=== PATIENT | female | born 1935 | race Two or more races ===

== ENCOUNTER 2017-04-08 16:07 | Inpatient (IN) | payer MEDICARE ==
[~2017-04-08] VITALS: Ht 160 cm; Wt 61.4 kg
[2017-04-08] MEDS ORDERED: cloNIDine HCL 0.1 MG TAB ONE (16:59)
[2017-04-08] MEDS ORDERED: cloNIDine HCL 0.1 MG TAB PO ONE (17:15)
[2017-04-08 17:35] LABS: Basophils # (auto) 0 uL; Basophils % (auto) 0.4 % (0.0-2.0); Eosinophils # (auto) 0.5 uL; Eosinophils % (auto) 8.4 % (0.0-7.0); Hematocrit 33.8 % (36.0-46.0); Hemoglobin 11.3 g/dL (12.2-16.2); Lymphocytes # (auto) 1.1 uL; Lymphocytes % (auto) 16.7 % (10.0-50.0); Mean Corpuscular Hemoglobin 30.5 pg (28.0-32.0); Mean Corpuscular Hgb Conc. 33.5 g/dL (32.0-36.0); Mean Corpuscular Volume 91.1 fL (80.0-100.0); Mean Platelet Volume 7.8 fL (6.9-10.8); Monocytes # (auto) 0.4 uL; Monocytes % (auto) 7.1 % (0.0-12.0); Neutrophils # (auto) 4.3 uL; Neutrophils % (auto) 67.4 % (37.0-80.0); Platelet Count (auto) 203 10^3/uL (140-450); Red Cell Distribution Width 16.1 % (11.8-14.3); White Blood Cell 6.3 10^3/uL (4.4-10.8)
[2017-04-08 17:51] LABS: Albumin 3.1 g/dL (3.4-5.0); BUN/Creatinine Ratio 14.9; Bilirubin, Total 0.7 mg/dL (0.2-1.0); Calcium 8.3 mg/dL (8.5-10.1); Potassium 3.1 mmol/L (3.5-5.1); Total Protein 6.9 g/dL (6.4-8.2)
[2017-04-08] MEDS ORDERED: IPRATROPIUM BROM 0.5 MG/2.5ML INH SOL NEB ONE (19:30)
[2017-04-08] MEDS ORDERED: ALBUTEROL SULF 2.5 MG/0.5ML(0.5%) NEB SOLN NEB ONE (19:30)
[2017-04-08] MEDS ORDERED: methylPREDNISolone SOD SUCC 125 MG/2 ML VL IV ONE (20:00)
[2017-04-08 20:49] LABS: B-Type Natriuretic Peptide 361.54 pg/mL (0-100)
[2017-04-08 21:11] LABS: Temperature: 21.4 C (20.0-25.0)
[2017-04-08] MEDS ORDERED: POTASSIUM CHL 20 Meq TABLET PO ONE (23:30)
[2017-04-08] MEDS ORDERED: FUROSEMIDE 20 MG/2 ML VIAL IV ONE (23:30)
[2017-04-08] MEDS ORDERED: cefTRIAXone 1GM/50ML D5W 50 ML IV ONE (23:30)
[2017-04-09] MEDS ORDERED: IOHEXOL 350 MG/ML 100ML IJ ONE (00:58)
[2017-04-09] MEDS ORDERED: ACETAMINOPHEN 325 MG TAB PO PRN (01:00)
[2017-04-09] MEDS ORDERED: TEMAZEPAM 15 MG CAP PO PRN (01:00)
[2017-04-09] MEDS ORDERED: MORPHINE SULF INJ 2 MG/ML SYRINGE 1ML IV PRN (01:00)
[2017-04-09] MEDS ORDERED: cloNIDine HCL 0.1 MG TAB PO PRN (01:00)
[2017-04-09] MEDS ORDERED: hydrALAZINE HCL 25 MG TAB PO ONE (01:00)
[2017-04-09] MEDS ORDERED: HYDROcodone-ACET 5/325MG TAB PO PRN (01:00)
[2017-04-09] MEDS ORDERED: IPRATROPIUM BROM 0.5 MG/2.5ML INH SOL NEB PRN (01:00)
[2017-04-09] MEDS ORDERED: DOCUSATE SOD 100 MG CAP PO PRN (01:00)
[2017-04-09] MEDS ORDERED: ONDANSETRON HCL 4 MG/2 ML VIAL IV PRN (01:00)
[2017-04-09] MEDS ORDERED: ALBUTEROL SULF 2.5 MG/0.5ML(0.5%) NEB SOLN NEB PRN (01:00)
[2017-04-09] MEDS ORDERED: NITROGLYCERIN 0.4 MG SL TAB SL PRN (01:00)
[2017-04-09 04:35] VITALS: BP 153/74
[2017-04-09 04:37] LABS: INR 1.85 (0.9-1.15); Partial Thromboplastin Time 34.7 sec (22.64-33.71); Prothrombin Time 20.3 sec (9.37-12.3)
[2017-04-09 08:00] VITALS: BP 161/80
[2017-04-09] MEDS: FAMOTIDINE 20 MG TAB PO SCH ×2 (09:49→21:32)
[2017-04-09] MEDS: amLODIPine BESYLATE 5 MG TAB PO SCH (09:49)
[2017-04-09] MEDS: hydrALAZINE HCL 25 MG TAB PO SCH ×2 (09:50→21:32)
[2017-04-09] MEDS ORDERED: ENOXAPARIN SOD 40 MG/0.4 ML SYRINGE SC SCH (10:00)
[2017-04-09 12:00] VITALS: BP 139/70
[2017-04-09] MEDS ORDERED: FUROSEMIDE 20 MG/2 ML VIAL IV ONE (12:00)
[2017-04-09] MEDS ORDERED: POTASSIUM CHL 20 Meq TABLET PO ONE (12:00)
[2017-04-09 15:25] LABS: Urine Bilirubin Negative (Negative); Urine Blood Negative /uL (Negative); Urine Color Yellow (Yellow); Urine Glucose Normal (Normal); Urine Ketone Negative (Negative); Urine Nitrite Negative (Negative); Urine RBC 1 /hpf (0 - 4); Urine Squamous Epithelial Cell FEW /hpf (<5); Urine Urobilinogen Normal (Negative); Urine pH 5.5 (5.0-8.0)
[2017-04-09] MEDS ORDERED: WARF2TAB55 PO (16:06)
[2017-04-09] MEDS ORDERED: WARF2.5T PO (16:06)
[2017-04-09] MEDS ORDERED: DIPH25CA46 PO (16:06)
[2017-04-09] MEDS ORDERED: [UNRECOGNIZED DRUG - CODE] PO (16:06)
[2017-04-09] MEDS ORDERED: METO-159 PO (16:06)
[2017-04-09] MEDS ORDERED: CEPH500C PO (16:06)
[2017-04-09] MEDS ORDERED: CLON0.1T PO (16:06)
[2017-04-09] MEDS ORDERED: IPRIH INH (16:06)
[2017-04-09 16:59] VITALS: BP 140/85
[2017-04-09] MEDS ORDERED: WARFARIN SODIUM 2.5 MG TAB PO ONE (17:00)
[2017-04-09 19:39] VITALS: BP 140/85
[2017-04-09] MEDS ORDERED: cefTRIAXone 1GM/50ML D5W 50 ML IV SCH (21:00)
[2017-04-09 21:50] VITALS: BP 141/77
[2017-04-10 04:56] VITALS: BP 141/80
[2017-04-10 06:27] LABS: INR 2.23 (0.9-1.15); Partial Thromboplastin Time 33.1 sec (22.64-33.71); Prothrombin Time 24.5 sec (9.37-12.3)
[2017-04-10 06:46] LABS: BUN/Creatinine Ratio 21.7; Calcium 8.5 mg/dL (8.5-10.1); Potassium 3.6 mmol/L (3.5-5.1)
[2017-04-10 09:26] VITALS: BP 163/77
[2017-04-10] MEDS ORDERED: predniSONE 20 MG TAB PO ONE (09:45)
[2017-04-10] MEDS: amLODIPine BESYLATE 5 MG TAB PO SCH (10:36)
[2017-04-10] MEDS: FAMOTIDINE 20 MG TAB PO SCH (10:36)
[2017-04-10] MEDS: hydrALAZINE HCL 25 MG TAB PO SCH (10:37)
[2017-04-10] MEDS ORDERED: WARFARIN SODIUM 2.5 MG TAB PO ONE (17:00)
== END 2017-04-10 11:15 | disposition home or self-care (01) | DRG 291 ==
LOC: ER 16:13 → TELE 16:14 → TELE-CENTR 04-09 04:35 → CENTRAL 04-09 12:00
PROVIDERS: ADMIT Internal Medicine; ATTEND Internal Medicine
DX: I11.0 Hypertensive heart disease with heart failure (principal); J96.20 Acute and chronic respiratory failure, unspecified whether with hypoxia or hypercapnia; D68.69 Other thrombophilia; J44.1 Chronic obstructive pulmonary disease with (acute) exacerbation; I50.9 Heart failure, unspecified; I48.91 Unspecified atrial fibrillation; E87.6 Hypokalemia; R00.1 Bradycardia, unspecified; J06.9 Acute upper respiratory infection, unspecified; I69.320 Aphasia following cerebral infarction; Z83.3 Family history of diabetes mellitus; Z90.49 Acquired absence of other specified parts of digestive tract; Z90.710 Acquired absence of both cervix and uterus
CPT/HCPCS: 36415; 71020; 71275; 80048; 80053; 81001; 83880; 84484; 85025; 85379; 85610; 85730; 94640; 96365; 96375; J0696

== ENCOUNTER 2017-04-25 02:52 | Emergency (ER) | payer MEDICARE ==
[~2017-04-25] VITALS: Ht 165.1 cm; Wt 63.5 kg
[~2017-04-25 02:52] MED LIST: CEPH500C PO; CLON0.1T PO; DIPH25CA46 PO; IPRIH INH; METO-159 PO; WARF2.5T PO; WARF2TAB55 PO; [UNRECOGNIZED DRUG - CODE] PO
[2017-04-25] MEDS ORDERED: ALBUTEROL SULF 2.5 MG/0.5ML(0.5%) NEB SOLN HHN STA (03:08)
[2017-04-25] MEDS ORDERED: cloNIDine HCL 0.1 MG TAB PO ONE (03:15)
[2017-04-25] MEDS ORDERED: IPRATROPIUM BROM 0.5 MG/2.5ML INH SOL NEB ONE (03:15)
[2017-04-25 03:23] LABS: Basophils # (auto) 0 uL; Basophils % (auto) 0.3 % (0.0-2.0); Eosinophils # (auto) 0.4 uL; Eosinophils % (auto) 4.5 % (0.0-7.0); Hematocrit 35.3 % (36.0-46.0); Hemoglobin 11.8 g/dL (12.2-16.2); Lymphocytes # (auto) 0.9 uL; Lymphocytes % (auto) 10.5 % (10.0-50.0); Mean Corpuscular Hemoglobin 30.3 pg (28.0-32.0); Mean Corpuscular Hgb Conc. 33.4 g/dL (32.0-36.0); Mean Corpuscular Volume 90.8 fL (80.0-100.0); Monocytes # (auto) 0.8 uL; Neutrophils # (auto) 6.6 uL; Neutrophils % (auto) 75.7 % (37.0-80.0); Platelet Count (auto) 234 10^3/uL (140-450); Red Blood Cells 3.89 10^6/uL (4.0-5.20); Red Cell Distribution Width 16.1 % (11.8-14.3); White Blood Cell 8.7 10^3/uL (4.4-10.8)
[2017-04-25 03:44] LABS: INR 1.84 (0.9-1.15); Partial Thromboplastin Time 37.1 sec (22.64-33.71); Prothrombin Time 20.2 sec (9.37-12.3)
[2017-04-25 04:03] LABS: Albumin 3.1 g/dL (3.4-5.0); BUN/Creatinine Ratio 19.4; Calcium 8.6 mg/dL (8.5-10.1); Potassium 3.2 mmol/L (3.5-5.1)
[2017-04-25 04:08] LABS: Bilirubin, Total 0.8 mg/dL (0.2-1.0); Total Protein 6.9 g/dL (6.4-8.2)
[2017-04-25] MEDS ORDERED: DILTIAZEM HCL 25 MG/5 ML VIAL IV ONE ×2 (04:30→08:00)
[2017-04-25] MEDS ORDERED: POTASSIUM CHL 20 Meq TABLET PO ONE (04:45)
[2017-04-25 06:31] LABS: Urine Bacteria FEW /hpf (None Seen); Urine Blood Negative /uL (Negative); Urine Mucus FEW (None Seen); Urine Specific Gravity 1.005 (1.001-1.035); Urine WBC <1 /hpf (0 - 5)
[2017-04-25] MEDS ORDERED: POTASSIUM CHL 10% (20 MEQ/15ML) 15ml ORAL SOLN PO ONE (08:00)
[2017-04-25 09:44] VITALS: BP 182/67
== END 2017-04-25 09:57 | disposition home or self-care (01) ==
LOC: ER 03:02
DX: I10 Essential (primary) hypertension (principal); E87.6 Hypokalemia; E46 Unspecified protein-calorie malnutrition; J44.9 Chronic obstructive pulmonary disease, unspecified; Z86.73 Personal history of transient ischemic attack (TIA), and cerebral infarction without residual deficits; Z90.710 Acquired absence of both cervix and uterus; Z90.89 Acquired absence of other organs; Z79.899 Other long term (current) drug therapy
CPT/HCPCS: 36415; 70450; 71020; 80053; 81001; 84484; 85025; 85610; 85730; 93005; 94640; 96374; 99285; J7030

== ENCOUNTER 2017-11-30 03:47 | Inpatient (IN) | payer MEDICARE ==
[~2017-11-30] VITALS: Ht 157.5 cm; Wt 55.9 kg
[2017-11-30] MEDS ORDERED: IPRATROPIUM BROM 0.5 MG/2.5ML INH SOL NEB ONE (05:00)
[2017-11-30] MEDS ORDERED: ALBUTEROL SULF 2.5 MG/0.5ML(0.5%) NEB SOLN NEB ONE (05:00)
[2017-11-30] MEDS ORDERED: methylPREDNISolone SOD SUCC 125 MG/2 ML VL IV ONE (05:45)
[2017-11-30] MEDS ORDERED: cefTRIAXone 1GM/10ml IVPUSH 10 ML IV ONE ×2 (05:45→11:15)
[2017-11-30] MEDS ORDERED: MAGNESIUM SULFATE 1GM/100ML 100 ML IV ONE (05:52)
[2017-11-30] MEDS: MAGNESIUM SULFATE 1GM/100ML 100 ML IV SCH ×2 (06:06→06:45)
[2017-11-30 06:16] LABS: Hematocrit 36.6 % (36.0-46.0); Hemoglobin 12.2 g/dL (12.2-16.2); Mean Corpuscular Hemoglobin 30.9 pg (28.0-32.0); Mean Corpuscular Hgb Conc. 33.3 g/dL (32.0-36.0); Mean Corpuscular Volume 92.9 fL (80.0-100.0); Platelet Count (auto) 203 10^3/uL (140-450); Red Blood Cells 3.94 10^6/uL (4.0-5.20); Red Cell Distribution Width 14.2 % (11.8-14.3); White Blood Cell 5.5 10^3/uL (4.4-10.8)
[2017-11-30 06:18] LABS: Alanine Aminotransferase 11 U/L (13-56); Albumin 3.2 g/dL (3.4-5.0); Anion Gap 10 (5-15); Aspartate Aminotransferase 13 U/L (15-37); BUN/Creatinine Ratio 16.8; Blood Urea Nitrogen 22 mg/dL (7-18); Calcium 8.5 mg/dL (8.5-10.1); Carbon Dioxide 29 mmol/L (21-32); Chloride 104 mmol/L (98-107); GFR African American 50 mL/min; GFR Non-African American 41 mL/min; Glucose 98 mg/dL (74-106); Magnesium 2.2 mg/dL (1.6-2.6); Potassium 3.2 mmol/L (3.5-5.1); Sodium 143 mmol/L (136-145)
[2017-11-30 06:23] LABS: Alkaline Phosphatase 57 U/L (45-117); Bilirubin, Total 0.6 mg/dL (0.2-1.0); Total Protein 7.1 g/dL (6.4-8.2)
[2017-11-30 06:31] LABS: Band Neutrophils % (manual) 0; Basophils % (manual) 0 (0.0-2.0); Blast Cells 0; Metamyelocytes % 0; Myelocytes % 0; Promyelocytes % 0; Reactive Lymphocytes 0
[2017-11-30 06:59] LABS: Urine Bacteria NONE SEEN /hpf (None Seen); Urine Blood Negative /uL (Negative); Urine Specific Gravity 1.014 (1.001-1.035); Urine WBC 5 /hpf (0 - 5)
[2017-11-30 07:42] LABS: Eosinophils % (manual) 15 (0-7); Lymphocytes % (manual) 19 (10.0-50.0); Monocytes % (manual) 8 (0-12)
[2017-11-30] MEDS ORDERED: HYDROcodone-ACET 5/325MG TAB PO PRN (11:30)
[2017-11-30] MEDS ORDERED: FUROSEMIDE 20 MG TAB PO ONE (11:30)
[2017-11-30] MEDS ORDERED: TEMAZEPAM 15 MG CAP PO PRN (11:30)
[2017-11-30] MEDS ORDERED: POTASSIUM CHL 10 Meq TABLET PO ONE (11:30)
[2017-11-30] MEDS ORDERED: DILTIAZEM HCL 120MG ER CAP PO ONE (11:30)
[2017-11-30] MEDS ORDERED: ONDANSETRON HCL 4 MG/2 ML VIAL IV PRN (11:30)
[2017-11-30] MEDS ORDERED: DOCUSATE SOD 100 MG CAP PO PRN (11:30)
[2017-11-30] MEDS: FAMOTIDINE 20 MG TAB PO SCH (11:54)
[2017-11-30] MEDS: methylPREDNISolone SOD SUCC 40 MG/ML VL IV SCH ×3 (11:54→23:42)
[2017-11-30 12:06] LABS: INR 2.4 (0.9-1.15); Partial Thromboplastin Time 36.9 sec (23.78-33.04); Prothrombin Time 24.4 sec (9.27-12.13)
[2017-11-30] MEDS: IPRATROPIUM BROM 0.5 MG/2.5ML INH SOL NEB SCH ×2 (12:35→18:07)
[2017-11-30] MEDS: ALBUTEROL SULF 2.5 MG/0.5ML(0.5%) NEB SOLN NEB SCH ×2 (12:35→18:07)
[2017-11-30] MEDS: BOOST PLUS 8 ounce PO SCH ×2 (12:44→18:00)
[2017-11-30] MEDS: SODIUM CHLOR 0.9% PF (SALINE LOCK) 10ML VIAL/SYR IV SCH ×2 (12:44→22:03)
[2017-11-30 14:16] VITALS: BP 138/64
[2017-11-30 14:26] VITALS: BP 142/63
[2017-11-30] MEDS ORDERED: FURO20TA3 PO (14:41)
[2017-11-30] MEDS ORDERED: WARF2.5T39 PO (14:41)
[2017-11-30] MEDS ORDERED: ESCI10TA53 PO (14:41)
[2017-11-30] MEDS ORDERED: POTA10TA51 PO (14:41)
[2017-11-30] MEDS ORDERED: DILT60TA27 PO (14:41)
[2017-11-30] MEDS ORDERED: HYDR25TA35 PO (14:41)
[2017-11-30] MEDS ORDERED: IPRA0.03 INH (14:41)
[2017-11-30] MEDS ORDERED: ACET250T3 PO (14:41)
[2017-11-30] MEDS ORDERED: ALBU0.5N2 IN (14:41)
[2017-11-30] MEDS: hydrALAZINE HCL 25 MG TAB PO SCH ×2 (16:40→22:03)
[2017-11-30] MEDS ORDERED: WARFARIN SODIUM 2.5 MG TAB PO ONE (17:00)
[2017-11-30 17:25] VITALS: BP 122/85
[2017-11-30 21:53] VITALS: BP 136/71
[2017-11-30] MEDS ORDERED: FAMOTIDINE 20 MG TAB PO SCH (22:00)
[2017-11-30] MEDS: METOPROLOL TARTRATE 50 MG TAB PO SCH (22:04)
[2017-11-30] MEDS: ACETAMINOPHEN 325 MG TAB PO PRN (23:43)
[2017-12-01] MEDS: ALBUTEROL SULF 2.5 MG/0.5ML(0.5%) NEB SOLN NEB SCH ×4 (00:14→19:25)
[2017-12-01] MEDS: IPRATROPIUM BROM 0.5 MG/2.5ML INH SOL NEB SCH ×4 (00:14→19:25)
[2017-12-01 04:00] VITALS: BP 143/64
[2017-12-01] MEDS: SODIUM CHLOR 0.9% PF (SALINE LOCK) 10ML VIAL/SYR IV SCH ×3 (05:24→21:44)
[2017-12-01] MEDS: methylPREDNISolone SOD SUCC 40 MG/ML VL IV SCH ×3 (05:25→18:07)
[2017-12-01] MEDS: hydrALAZINE HCL 25 MG TAB PO SCH ×3 (05:25→21:44)
[2017-12-01 05:45] LABS: Basophils # (auto) 0 uL; Basophils % (auto) 0.1 % (0.0-2.0); Eosinophils # (auto) 0 uL; Hematocrit 36.5 % (36.0-46.0); Hemoglobin 12.2 g/dL (12.2-16.2); Lymphocytes # (auto) 0.5 uL; Lymphocytes % (auto) 7.8 % (10.0-50.0); Mean Corpuscular Hemoglobin 30.7 pg (28.0-32.0); Mean Corpuscular Hgb Conc. 33.5 g/dL (32.0-36.0); Mean Corpuscular Volume 91.8 fL (80.0-100.0); Monocytes # (auto) 0.1 uL; Monocytes % (auto) 1.5 % (0.0-12.0); Neutrophils # (auto) 5.9 uL; Neutrophils % (auto) 90.6 % (37.0-80.0); Platelet Count (auto) 205 10^3/uL (140-450); Red Blood Cells 3.97 10^6/uL (4.0-5.20); Red Cell Distribution Width 14.5 % (11.8-14.3); White Blood Cell 6.5 10^3/uL (4.4-10.8)
[2017-12-01 05:55] LABS: INR 3.12 (0.9-1.15); Partial Thromboplastin Time 36.4 sec (23.78-33.04); Prothrombin Time 31.3 sec (9.27-12.13)
[2017-12-01 05:56] LABS: Albumin 3.2 g/dL (3.4-5.0); Calcium 8.4 mg/dL (8.5-10.1); Potassium 3.4 mmol/L (3.5-5.1)
[2017-12-01 05:58] LABS: BUN/Creatinine Ratio 18.9
[2017-12-01 06:01] LABS: Bilirubin, Total 0.4 mg/dL (0.2-1.0); Total Protein 7.2 g/dL (6.4-8.2)
[2017-12-01] MEDS: BOOST PLUS 8 ounce PO SCH ×3 (08:00→18:51)
[2017-12-01 08:29] VITALS: BP 147/74
[2017-12-01] MEDS: FUROSEMIDE 20 MG TAB PO SCH (09:57)
[2017-12-01] MEDS: cefTRIAXone 1GM/10ml IVPUSH 10 ML IV SCH (09:57)
[2017-12-01] MEDS: POTASSIUM CHL 10 Meq TABLET PO SCH (09:58)
[2017-12-01] MEDS: CHOLECALCIFEROL (VITD3) 1,000 UNIT TAB PO SCH (09:58)
[2017-12-01] MEDS: MULTIPLE VITAMIN TAB PO SCH (09:58)
[2017-12-01] MEDS: DILTIAZEM HCL 120MG ER CAP PO SCH (09:58)
[2017-12-01] MEDS: FAMOTIDINE 20 MG TAB PO SCH (09:58)
[2017-12-01] MEDS: METOPROLOL TARTRATE 50 MG TAB PO SCH ×2 (09:59→21:44)
[2017-12-01 13:00] VITALS: BP 146/81
[2017-12-01] MEDS ORDERED: guaiFENesin-DM 100/10mg/5ml SYR PO PRN (13:30)
[2017-12-01] MEDS ORDERED: POTASSIUM CHLORIDE 8 MEQ TAB PO ONE (13:30)
[2017-12-01] MEDS: ACETAMINOPHEN 325 MG TAB PO PRN (16:05)
[2017-12-01] MEDS ORDERED: WARFARIN SODIUM 2.5 MG TAB PO ONE (17:00)
[2017-12-01 17:14] VITALS: BP 146/68
[2017-12-01 23:17] VITALS: BP 143/70
[2017-12-02] MEDS: methylPREDNISolone SOD SUCC 40 MG/ML VL IV SCH ×3 (00:07→11:59)
[2017-12-02] MEDS: ALBUTEROL SULF 2.5 MG/0.5ML(0.5%) NEB SOLN NEB SCH ×3 (00:33→13:46)
[2017-12-02] MEDS: IPRATROPIUM BROM 0.5 MG/2.5ML INH SOL NEB SCH ×3 (00:33→13:46)
[2017-12-02 05:30] VITALS: BP 152/75
[2017-12-02] MEDS: SODIUM CHLOR 0.9% PF (SALINE LOCK) 10ML VIAL/SYR IV SCH ×2 (05:58→13:45)
[2017-12-02] MEDS: hydrALAZINE HCL 25 MG TAB PO SCH ×2 (05:59→13:43)
[2017-12-02 06:41] LABS: Basophils # (auto) 0 uL; Basophils % (auto) 0.1 % (0.0-2.0); Eosinophils # (auto) 0 uL; Hematocrit 35.1 % (36.0-46.0); Hemoglobin 11.9 g/dL (12.2-16.2); Lymphocytes # (auto) 0.3 uL; Lymphocytes % (auto) 2.9 % (10.0-50.0); Mean Corpuscular Hemoglobin 30.9 pg (28.0-32.0); Mean Corpuscular Hgb Conc. 33.9 g/dL (32.0-36.0); Monocytes # (auto) 0.2 uL; Neutrophils # (auto) 10.3 uL; Platelet Count (auto) 208 10^3/uL (140-450); Red Blood Cells 3.86 10^6/uL (4.0-5.20); Red Cell Distribution Width 14.5 % (11.8-14.3); White Blood Cell 10.9 10^3/uL (4.4-10.8)
[2017-12-02 06:50] LABS: INR 3.23 (0.9-1.15); Partial Thromboplastin Time 35.7 sec (23.78-33.04); Prothrombin Time 32.3 sec (9.27-12.13)
[2017-12-02 06:51] LABS: BUN/Creatinine Ratio 32.1; Calcium 8.2 mg/dL (8.5-10.1); Potassium 3.5 mmol/L (3.5-5.1)
[2017-12-02] MEDS: BOOST PLUS 8 ounce PO SCH ×2 (08:58→13:15)
[2017-12-02] MEDS: cefTRIAXone 1GM/10ml IVPUSH 10 ML IV SCH (09:08)
[2017-12-02] MEDS: MULTIPLE VITAMIN TAB PO SCH (09:08)
[2017-12-02] MEDS: DILTIAZEM HCL 120MG ER CAP PO SCH (09:09)
[2017-12-02] MEDS: FAMOTIDINE 20 MG TAB PO SCH (09:09)
[2017-12-02] MEDS: FUROSEMIDE 20 MG TAB PO SCH (09:09)
[2017-12-02] MEDS: POTASSIUM CHL 10 Meq TABLET PO SCH (09:09)
[2017-12-02] MEDS: CHOLECALCIFEROL (VITD3) 1,000 UNIT TAB PO SCH (09:10)
[2017-12-02] MEDS: METOPROLOL TARTRATE 50 MG TAB PO SCH (09:10)
[2017-12-02 09:18] VITALS: BP 147/74
[2017-12-02 15:20] VITALS: BP 148/80
== END 2017-12-02 16:20 | disposition home or self-care (01) | DRG 189 ==
LOC: ER 03:49 → OVERFLOW 03:50 → EAST 14:42
PROVIDERS: ADMIT Internal Medicine; ATTEND Family Medicine
DX: J96.01 Acute respiratory failure with hypoxia (principal); J44.0 Chronic obstructive pulmonary disease with (acute) lower respiratory infection; J45.901 Unspecified asthma with (acute) exacerbation; I48.92 Unspecified atrial flutter; E44.0 Moderate protein-calorie malnutrition; J44.1 Chronic obstructive pulmonary disease with (acute) exacerbation; I13.0 Hypertensive heart and chronic kidney disease with heart failure and stage 1 through stage 4 chronic kidney disease, or unspecified chronic kidney disease; I69.351 Hemiplegia and hemiparesis following cerebral infarction affecting right dominant side; J20.9 Acute bronchitis, unspecified; N18.3 Chronic kidney disease, stage 3 (moderate); I48.0 Paroxysmal atrial fibrillation; I25.10 Atherosclerotic heart disease of native coronary artery without angina pectoris; E87.6 Hypokalemia; I50.9 Heart failure, unspecified; I25.2 Old myocardial infarction; I69.320 Aphasia following cerebral infarction; Z90.710 Acquired absence of both cervix and uterus; Z90.49 Acquired absence of other specified parts of digestive tract; Z90.89 Acquired absence of other organs; Z79.899 Other long term (current) drug therapy; Z95.0 Presence of cardiac pacemaker; Z68.22 Body mass index [BMI] 22.0-22.9, adult
CPT/HCPCS: 36415; 71045; 80048; 80053; 81001; 83735; 83880; 84484; 85007; 85025; 85027; 85610; 85730; 87070; 87205; 93005; 93306; 93886; 94640; 94761; 96365; 96375; 97163

== ENCOUNTER 2018-01-18 18:07 | Inpatient (IN) | payer MEDICARE ==
[~2018-01-18] VITALS: Ht 157.5 cm; Wt 55.8 kg
[~2018-01-18 18:07] MED LIST changes: +ACET250T3 PO; +ALBU0.5N2 IN; -CEPH500C PO; -CLON0.1T PO; +DILT60TA27 PO; -DIPH25CA46 PO; +ESCI10TA53 PO; +FURO20TA3 PO; +HYDR-4296 PO; +IPRA0.03 INH; -IPRIH INH; +POTA10TA51 PO; -WARF2.5T PO; +WARF2.5T39 PO; -WARF2TAB55 PO; -[UNRECOGNIZED DRUG - CODE] PO
[2018-01-18 18:38] LABS: Basophils # (auto) 0.1 uL; Basophils % (auto) 0.8 % (0.0-2.0); Eosinophils # (auto) 0.3 uL; Eosinophils % (auto) 3.6 % (0.0-7.0); Hematocrit 33.8 % (36.0-46.0); Hemoglobin 11.5 g/dL (12.2-16.2); Lymphocytes # (auto) 0.7 uL; Lymphocytes % (auto) 8.2 % (10.0-50.0); Mean Corpuscular Hemoglobin 30.7 pg (28.0-32.0); Mean Corpuscular Volume 90.4 fL (80.0-100.0); Monocytes # (auto) 0.5 uL; Monocytes % (auto) 6.5 % (0.0-12.0); Neutrophils # (auto) 6.7 uL; Neutrophils % (auto) 80.9 % (37.0-80.0); Platelet Count (auto) 298 10^3/uL (140-450); Red Blood Cells 3.74 10^6/uL (4.0-5.20); Red Cell Distribution Width 14.7 % (11.8-14.3); White Blood Cell 8.3 10^3/uL (4.4-10.8)
[2018-01-18 18:57] LABS: Alanine Aminotransferase 9 U/L (13-56); Albumin 2.7 g/dL (3.4-5.0); Anion Gap 7 (5-15); Aspartate Aminotransferase 6 U/L (15-37); BUN/Creatinine Ratio 16.1; Blood Urea Nitrogen 27 mg/dL (7-18); Calcium 7.9 mg/dL (8.5-10.1); Carbon Dioxide 28 mmol/L (21-32); Chloride 103 mmol/L (98-107); GFR African American 37 mL/min; GFR Non-African American 31 mL/min; Glucose 100 mg/dL (74-106); Potassium 3.6 mmol/L (3.5-5.1); Sodium 138 mmol/L (136-145)
[2018-01-18 19:01] LABS: Alkaline Phosphatase 85 U/L (45-117); Bilirubin, Total 0.5 mg/dL (0.2-1.0); Total Protein 6.9 g/dL (6.4-8.2)
[2018-01-18] MEDS ORDERED: ALBUTEROL SULF 2.5 MG/0.5ML(0.5%) NEB SOLN HHN ONE (19:30)
[2018-01-18] MEDS ORDERED: IPRATROPIUM BROM 0.5 MG/2.5ML INH SOL HHN ONE (19:30)
[2018-01-18] MEDS ORDERED: methylPREDNISolone SOD SUCC 125 MG/2 ML VL IV ONE (19:30)
[2018-01-18] MEDS ORDERED: cefTRIAXone 1GM/10ml IVPUSH 10 ML IV ONE (20:30)
[2018-01-18] MEDS ORDERED: TIOT17SP (20:56)
[2018-01-18] MEDS ORDERED: LISI-646 PO (20:56)
[2018-01-18] MEDS ORDERED: FUR20T PO (20:56)
[2018-01-18] MEDS ORDERED: ESCI10TA PO (20:57)
[2018-01-18 21:44] LABS: INR 3.57 (0.9-1.15); Prothrombin Time 35.5 sec (9.27-12.13)
[2018-01-18] MEDS ORDERED: ALBUTEROL SULF 2.5 MG/0.5ML(0.5%) NEB SOLN NEB PRN (21:45)
[2018-01-18] MEDS ORDERED: NITROGLYCERIN 0.4 MG SL TAB SL PRN (21:45)
[2018-01-18] MEDS ORDERED: MORPHINE SULFATE 4 MG/ML SYR/VIAL IV PRN (21:45)
[2018-01-18] MEDS ORDERED: HYDROcodone-ACET 5/325MG TAB PO PRN (21:45)
[2018-01-18] MEDS ORDERED: ACETAMINOPHEN 325 MG TAB PO PRN (21:45)
[2018-01-18] MEDS ORDERED: ONDANSETRON HCL 4 MG/2 ML VIAL IV PRN (21:45)
[2018-01-18] MEDS ORDERED: TEMAZEPAM 15 MG CAP PO PRN (21:45)
[2018-01-18] MEDS ORDERED: IPRATROPIUM BROM 0.5 MG/2.5ML INH SOL NEB PRN (21:45)
[2018-01-18] MEDS: hydrALAZINE HCL 25 MG TAB PO SCH (22:10)
[2018-01-18 22:47] VITALS: BP 138/74
[2018-01-18 23:06] LABS: Urine Bacteria FEW /hpf (None Seen); Urine Blood Negative /uL (Negative); Urine Mucus FEW (None Seen); Urine Specific Gravity 1.012 (1.001-1.035); Urine WBC 2 /hpf (0 - 5)
[2018-01-19 01:45] VITALS: BP 125/58
[2018-01-19 05:00] VITALS: BP 149/78
[2018-01-19] MEDS: hydrALAZINE HCL 25 MG TAB PO SCH ×2 (05:35→14:40)
[2018-01-19 06:44] LABS: Basophils # (auto) 0 uL; Basophils % (auto) 0.1 % (0.0-2.0); Eosinophils # (auto) 0 uL; Hematocrit 31.1 % (36.0-46.0); Hemoglobin 10.6 g/dL (12.2-16.2); Lymphocytes # (auto) 0.3 uL; Lymphocytes % (auto) 4.7 % (10.0-50.0); Mean Corpuscular Hemoglobin 30.8 pg (28.0-32.0); Mean Corpuscular Hgb Conc. 34.1 g/dL (32.0-36.0); Mean Corpuscular Volume 90.3 fL (80.0-100.0); Monocytes # (auto) 0 uL; Monocytes % (auto) 0.7 % (0.0-12.0); Neutrophils # (auto) 6.5 uL; Neutrophils % (auto) 94.5 % (37.0-80.0); Nucleated Red Blood Cells % 0.1 %; Platelet Count (auto) 274 10^3/uL (140-450); Red Blood Cells 3.45 10^6/uL (4.0-5.20); Red Cell Distribution Width 14.5 % (11.8-14.3); White Blood Cell 6.8 10^3/uL (4.4-10.8)
[2018-01-19 06:55] LABS: INR 3.63 (0.9-1.15); Partial Thromboplastin Time 50.6 sec (23.78-33.04); Prothrombin Time 36.1 sec (9.27-12.13)
[2018-01-19 07:03] LABS: Albumin 2.5 g/dL (3.4-5.0); BUN/Creatinine Ratio 18.9; Bilirubin, Total 0.3 mg/dL (0.2-1.0); Calcium 8.3 mg/dL (8.5-10.1); Potassium 3.9 mmol/L (3.5-5.1); Total Protein 6.8 g/dL (6.4-8.2)
[2018-01-19 09:00] VITALS: BP 146/70
[2018-01-19] MEDS ORDERED: cefTRIAXone 1GM/10ml IVPUSH 10 ML IV SCH (09:00)
[2018-01-19] MEDS ORDERED: FUROSEMIDE 20 MG TAB PO SCH (10:00)
[2018-01-19] MEDS ORDERED: DILTIAZEM HCL 120MG ER CAP PO SCH (10:00)
[2018-01-19] MEDS ORDERED: PANTOPRAZOLE 40 MG TAB PO SCH (10:00)
[2018-01-19] MEDS ORDERED: LISINOPRIL 20 MG TAB PO SCH (10:00)
[2018-01-19 12:00] VITALS: BP 151/69
== END 2018-01-19 16:30 | disposition home or self-care (01) | DRG 189 ==
LOC: ER 18:07 → TELE 18:08 → TELE-WESTW 23:35
PROVIDERS: ADMIT Nurse Practitioner; ATTEND Family Medicine
DX: J96.20 Acute and chronic respiratory failure, unspecified whether with hypoxia or hypercapnia (principal); I50.42 Chronic combined systolic (congestive) and diastolic (congestive) heart failure; J44.1 Chronic obstructive pulmonary disease with (acute) exacerbation; I13.0 Hypertensive heart and chronic kidney disease with heart failure and stage 1 through stage 4 chronic kidney disease, or unspecified chronic kidney disease; J44.0 Chronic obstructive pulmonary disease with (acute) lower respiratory infection; D63.8 Anemia in other chronic diseases classified elsewhere; I08.3 Combined rheumatic disorders of mitral, aortic and tricuspid valves; I25.10 Atherosclerotic heart disease of native coronary artery without angina pectoris; I25.2 Old myocardial infarction; I48.91 Unspecified atrial fibrillation; J20.9 Acute bronchitis, unspecified; N18.3 Chronic kidney disease, stage 3 (moderate); Z90.710 Acquired absence of both cervix and uterus; Z86.73 Personal history of transient ischemic attack (TIA), and cerebral infarction without residual deficits; Z80.59 Family history of malignant neoplasm of other urinary tract organ
CPT/HCPCS: 36415; 71045; 80053; 81001; 83605; 83735; 83880; 84484; 85025; 85610; 85730; 87040; 93005; 94640; 94761; 96374; 96375; 96376; J0696

== ENCOUNTER 2018-02-15 20:14 | Inpatient (IN) | payer MEDICARE ==
[~2018-02-15] VITALS: Ht 160 cm; Wt 57.0 kg
[~2018-02-15 20:14] MED LIST changes: -ACET250T3 PO; +ESCI10TA PO; -ESCI10TA53 PO; +LISI-646 PO; +TIOT17SP
[2018-02-15 21:19] LABS: Basophils # (auto) 0 uL; Basophils % (auto) 0.2 % (0.0-2.0); Eosinophils # (auto) 0.1 uL; Hematocrit 31.9 % (36.0-46.0); Hemoglobin 10.5 g/dL (12.2-16.2); Lymphocytes # (auto) 0.4 uL; Lymphocytes % (auto) 5.2 % (10.0-50.0); Mean Corpuscular Volume 93.8 fL (80.0-100.0); Monocytes # (auto) 0.7 uL; Monocytes % (auto) 10.3 % (0.0-12.0); Neutrophils # (auto) 5.6 uL; Neutrophils % (auto) 82.3 % (37.0-80.0); Platelet Count (auto) 425 10^3/uL (140-450); Red Cell Distribution Width 18.1 % (11.8-14.3); White Blood Cell 6.9 10^3/uL (4.4-10.8)
[2018-02-15 21:28] LABS: INR 2.28 (0.9-1.15); Partial Thromboplastin Time 39.5 sec (23.78-33.04); Prothrombin Time 23.3 sec (9.27-12.13)
[2018-02-15] MEDS ORDERED: FUROSEMIDE 20 MG/2 ML VIAL IV ONE (21:30)
[2018-02-15 21:33] LABS: Albumin 3.1 g/dL (3.4-5.0); Anion Gap 8 (5-15); Blood Urea Nitrogen 16 mg/dL (7-18); Calcium 8.3 mg/dL (8.5-10.1); Carbon Dioxide 28 mmol/L (21-32); Chloride 105 mmol/L (98-107); GFR African American 59 mL/min; GFR Non-African American 48 mL/min; Glucose 109 mg/dL (74-106); Magnesium 2.2 mg/dL (1.6-2.6); Potassium 3.7 mmol/L (3.5-5.1); Sodium 141 mmol/L (136-145)
[2018-02-15 21:42] LABS: Alanine Aminotransferase 10 U/L (13-56); Alkaline Phosphatase 67 U/L (45-117); Aspartate Aminotransferase 13 U/L (15-37); Bilirubin, Total 0.8 mg/dL (0.2-1.0); Total Protein 6.9 g/dL (6.4-8.2)
[2018-02-15 22:12] LABS: Urine Bacteria FEW /hpf (None Seen); Urine Blood Negative /uL (Negative); Urine Specific Gravity 1.009 (1.001-1.035); Urine WBC 9 /hpf (0 - 5)
[2018-02-16] MEDS ORDERED: TEMAZEPAM 15 MG CAP PO PRN (02:45)
[2018-02-16] MEDS ORDERED: ONDANSETRON HCL 4 MG/2 ML VIAL IV PRN (02:45)
[2018-02-16] MEDS ORDERED: HYDROcodone-ACET 5/325MG TAB PO PRN (02:45)
[2018-02-16] MEDS ORDERED: ALBUTEROL SULF 2.5 MG/0.5ML(0.5%) NEB SOLN NEB PRN (02:45)
[2018-02-16] MEDS ORDERED: IPRATROPIUM BROM 0.5 MG/2.5ML INH SOL NEB ONE (03:00)
[2018-02-16] MEDS ORDERED: ALBUTEROL SULF 2.5 MG/0.5ML(0.5%) NEB SOLN NEB ONE (03:00)
[2018-02-16] MEDS: IPRATROPIUM BROM 0.5 MG/2.5ML INH SOL NEB SCH ×3 (06:02→18:47)
[2018-02-16] MEDS: ALBUTEROL SULF 2.5 MG/0.5ML(0.5%) NEB SOLN NEB SCH ×3 (06:02→18:46)
[2018-02-16 06:16] VITALS: BP 164/67
[2018-02-16] MEDS: hydrALAZINE HCL 25 MG TAB PO SCH ×3 (06:44→21:35)
[2018-02-16 07:21] LABS: Calcium 8.5 mg/dL (8.5-10.1); Potassium 3.3 mmol/L (3.5-5.1)
[2018-02-16 07:22] LABS: BUN/Creatinine Ratio 14.2
[2018-02-16 07:25] LABS: Basophils # (auto) 0 uL; Basophils % (auto) 0.1 % (0.0-2.0); Eosinophils # (auto) 0.1 uL; Hematocrit 30.2 % (36.0-46.0); Hemoglobin 10.2 g/dL (12.2-16.2); Lymphocytes # (auto) 0.6 uL; Mean Corpuscular Hemoglobin 31.5 pg (28.0-32.0); Mean Corpuscular Hgb Conc. 33.8 g/dL (32.0-36.0); Mean Corpuscular Volume 93.2 fL (80.0-100.0); Monocytes # (auto) 0.8 uL; Neutrophils # (auto) 4.5 uL; Neutrophils % (auto) 74.9 % (37.0-80.0); Nucleated Red Blood Cells % 0.1 %; Platelet Count (auto) 390 10^3/uL (140-450); Red Blood Cells 3.24 10^6/uL (4.0-5.20); Red Cell Distribution Width 17.4 % (11.8-14.3)
[2018-02-16] MEDS: cefTRIAXone 1GM/10ml IVPUSH 10 ML IV SCH (09:00)
[2018-02-16] MEDS: METOPROLOL TARTRATE 50 MG TAB PO SCH ×2 (09:57→21:34)
[2018-02-16] MEDS: DILTIAZEM HCL 120MG ER CAP PO SCH (09:57)
[2018-02-16] MEDS: FUROSEMIDE 40 MG/4 ML VIAL IV SCH (09:57)
[2018-02-16 10:15] LABS: INR 2.08 (0.9-1.15); Partial Thromboplastin Time 40.4 sec (23.78-33.04); Prothrombin Time 21.4 sec (9.27-12.13)
[2018-02-16 16:32] VITALS: BP 140/71
[2018-02-16] MEDS: WARFARIN SODIUM 2.5 MG TAB PO SCH (17:16)
[2018-02-16] MEDS: BUDESONIDE (INHALATION) 0.5 MG/2 ML NEB NEB SCH (18:51)
[2018-02-16] MEDS: methylPREDNISolone SOD SUCC 40 MG/ML VL IV SCH (21:35)
[2018-02-16 22:00] VITALS: BP 138/64
[2018-02-17] MEDS: IPRATROPIUM BROM 0.5 MG/2.5ML INH SOL NEB SCH ×4 (00:30→18:58)
[2018-02-17] MEDS: ALBUTEROL SULF 2.5 MG/0.5ML(0.5%) NEB SOLN NEB SCH ×4 (00:31→18:58)
[2018-02-17 05:00] VITALS: BP 137/70
[2018-02-17] MEDS: methylPREDNISolone SOD SUCC 40 MG/ML VL IV SCH ×3 (05:44→22:26)
[2018-02-17] MEDS: hydrALAZINE HCL 25 MG TAB PO SCH ×3 (05:44→22:26)
[2018-02-17] MEDS: BUDESONIDE (INHALATION) 0.5 MG/2 ML NEB NEB SCH ×2 (06:34→18:58)
[2018-02-17 06:52] LABS: INR 2.01 (0.9-1.15); Prothrombin Time 20.7 sec (9.27-12.13)
[2018-02-17 09:13] VITALS: BP 124/60
[2018-02-17] MEDS ORDERED: POTASSIUM CHL 20 Meq TABLET PO ONE (10:30)
[2018-02-17] MEDS: cefTRIAXone 1GM/10ml IVPUSH 10 ML IV SCH (10:33)
[2018-02-17] MEDS: FUROSEMIDE 40 MG/4 ML VIAL IV SCH (10:34)
[2018-02-17] MEDS: METOPROLOL TARTRATE 50 MG TAB PO SCH ×2 (10:35→22:00)
[2018-02-17] MEDS: DILTIAZEM HCL 120MG ER CAP PO SCH (10:35)
[2018-02-17 12:05] VITALS: BP 132/68
[2018-02-17 17:14] VITALS: BP 132/61
[2018-02-17] MEDS: WARFARIN SODIUM 2.5 MG TAB PO SCH (17:37)
[2018-02-17 22:06] VITALS: BP 140/56
[2018-02-17] MEDS: ACETAMINOPHEN 500 MG TAB PO PRN (22:26)
[2018-02-18] MEDS: IPRATROPIUM BROM 0.5 MG/2.5ML INH SOL NEB SCH ×4 (00:34→19:04)
[2018-02-18] MEDS: ALBUTEROL SULF 2.5 MG/0.5ML(0.5%) NEB SOLN NEB SCH ×4 (00:34→19:04)
[2018-02-18] MEDS: methylPREDNISolone SOD SUCC 40 MG/ML VL IV SCH ×3 (05:39→21:28)
[2018-02-18] MEDS: hydrALAZINE HCL 25 MG TAB PO SCH ×3 (05:40→21:29)
[2018-02-18] MEDS: BUDESONIDE (INHALATION) 0.5 MG/2 ML NEB NEB SCH ×2 (05:52→19:04)
[2018-02-18 06:10] VITALS: BP 130/59
[2018-02-18 06:58] LABS: INR 2.47 (0.9-1.15); Prothrombin Time 25.1 sec (9.27-12.13)
[2018-02-18 07:15] LABS: BUN/Creatinine Ratio 21.1; Calcium 8.5 mg/dL (8.5-10.1); Potassium 3.5 mmol/L (3.5-5.1)
[2018-02-18 08:00] VITALS: BP 135/63
[2018-02-18] MEDS: cefTRIAXone 1GM/10ml IVPUSH 10 ML IV SCH (09:13)
[2018-02-18] MEDS: DILTIAZEM HCL 120MG ER CAP PO SCH (09:15)
[2018-02-18] MEDS: POTASSIUM CHL 20 Meq TABLET PO SCH (09:15)
[2018-02-18] MEDS: FUROSEMIDE 40 MG/4 ML VIAL IV SCH (09:16)
[2018-02-18] MEDS: METOPROLOL TARTRATE 50 MG TAB PO SCH ×2 (09:17→21:24)
[2018-02-18 12:18] VITALS: BP 153/63
[2018-02-18] MEDS: ACETAMINOPHEN 500 MG TAB PO PRN ×2 (15:14→21:29)
[2018-02-18 16:41] VITALS: BP 131/70
[2018-02-18] MEDS: guaiFENesin-DM 100/10mg/5ml SYR PO SCH ×2 (17:14→21:28)
[2018-02-18] MEDS: WARFARIN SODIUM 2.5 MG TAB PO SCH (17:14)
[2018-02-18 22:00] VITALS: BP 107/60
[2018-02-19] MEDS: IPRATROPIUM BROM 0.5 MG/2.5ML INH SOL NEB SCH ×2 (01:23→06:40)
[2018-02-19] MEDS: ALBUTEROL SULF 2.5 MG/0.5ML(0.5%) NEB SOLN NEB SCH ×2 (01:23→06:40)
[2018-02-19] MEDS: hydrALAZINE HCL 25 MG TAB PO SCH (05:27)
[2018-02-19] MEDS: guaiFENesin-DM 100/10mg/5ml SYR PO SCH (05:27)
[2018-02-19] MEDS: methylPREDNISolone SOD SUCC 40 MG/ML VL IV SCH (05:28)
[2018-02-19 05:31] VITALS: BP 129/59
[2018-02-19 05:46] LABS: INR 2.66 (0.9-1.15); Prothrombin Time 26.9 sec (9.27-12.13)
[2018-02-19] MEDS: BUDESONIDE (INHALATION) 0.5 MG/2 ML NEB NEB SCH (06:40)
[2018-02-19 09:00] VITALS: BP 152/74
[2018-02-19] MEDS: cefTRIAXone 1GM/10ml IVPUSH 10 ML IV SCH (09:00)
[2018-02-19] MEDS: METOPROLOL TARTRATE 50 MG TAB PO SCH (09:46)
[2018-02-19] MEDS: POTASSIUM CHL 20 Meq TABLET PO SCH (09:46)
[2018-02-19] MEDS: DILTIAZEM HCL 120MG ER CAP PO SCH (09:46)
[2018-02-19] MEDS: FUROSEMIDE 40 MG/4 ML VIAL IV SCH (09:46)
[2018-02-19 10:27] VITALS: BP 152/74
== END 2018-02-19 11:50 | disposition home or self-care (01) | DRG 291 ==
LOC: ER 20:14 → TELE 20:15 → TELE-CENTR 02-16 14:53 → CENTRAL 02-17 10:04
PROVIDERS: ADMIT Nurse Practitioner Family; ATTEND Family Medicine
DX: I13.0 Hypertensive heart and chronic kidney disease with heart failure and stage 1 through stage 4 chronic kidney disease, or unspecified chronic kidney disease (principal); J96.20 Acute and chronic respiratory failure, unspecified whether with hypoxia or hypercapnia; I50.33 Acute on chronic diastolic (congestive) heart failure; J44.1 Chronic obstructive pulmonary disease with (acute) exacerbation; E44.1 Mild protein-calorie malnutrition; N18.4 Chronic kidney disease, stage 4 (severe); J44.0 Chronic obstructive pulmonary disease with (acute) lower respiratory infection; N30.00 Acute cystitis without hematuria; I16.0 Hypertensive urgency; E78.5 Hyperlipidemia, unspecified; J20.9 Acute bronchitis, unspecified; D63.8 Anemia in other chronic diseases classified elsewhere; E87.6 Hypokalemia; I48.91 Unspecified atrial fibrillation; Z86.73 Personal history of transient ischemic attack (TIA), and cerebral infarction without residual deficits; I25.2 Old myocardial infarction; Z90.710 Acquired absence of both cervix and uterus; Z80.49 Family history of malignant neoplasm of other genital organs; Z90.89 Acquired absence of other organs; Z95.0 Presence of cardiac pacemaker; Z68.22 Body mass index [BMI] 22.0-22.9, adult
CPT/HCPCS: 36415; 71045; 80048; 80053; 81001; 83735; 83880; 84443; 84484; 85025; 85610; 85730; 87081; 87086; 93005; 94640; 94761; 96374; 96375; 96376; J0696

== ENCOUNTER 2018-04-12 12:08 | Inpatient (IN) | payer MEDICARE, OTHER ==
[~2018-04-12] VITALS: Ht 154.9 cm; Wt 56.3 kg
[2018-04-12 13:53] LABS: Basophils # (auto) 0 uL; Basophils % (auto) 0.6 % (0.0-2.0); Chloride 102 mmol/L (98-107); Eosinophils # (auto) 0.8 uL; Eosinophils % (auto) 14.7 % (0.0-7.0); Hematocrit 36.8 % (36.0-46.0); Hemoglobin 12.1 g/dL (12.2-16.2); Lymphocytes # (auto) 0.8 uL; Lymphocytes % (auto) 14.3 % (10.0-50.0); Mean Corpuscular Hemoglobin 29.8 pg (28.0-32.0); Mean Corpuscular Volume 90.5 fL (80.0-100.0); Monocytes # (auto) 0.4 uL; Monocytes % (auto) 7.1 % (0.0-12.0); Neutrophils # (auto) 3.6 uL; Neutrophils % (auto) 63.3 % (37.0-80.0); Nucleated Red Blood Cells % 0.1 %; Platelet Count (auto) 304 10^3/uL (140-450); Potassium 3.6 mmol/L (3.5-5.1); Red Blood Cells 4.07 10^6/uL (4.0-5.20); Red Cell Distribution Width 16.2 % (11.8-14.3); Sodium 136 mmol/L (136-145); White Blood Cell 5.7 10^3/uL (4.4-10.8)
[2018-04-12 14:00] LABS: Alanine Aminotransferase 8 U/L (13-56); Albumin 3.2 g/dL (3.4-5.0); Alkaline Phosphatase 71 U/L (45-117); Anion Gap 7 (5-15); Aspartate Aminotransferase 13 U/L (15-37); BUN/Creatinine Ratio 15.2; Bilirubin, Total 0.4 mg/dL (0.2-1.0); Blood Urea Nitrogen 25 mg/dL (7-18); Calcium 8.5 mg/dL (8.5-10.1); Carbon Dioxide 27 mmol/L (21-32); GFR African American 38 mL/min; GFR Non-African American 32 mL/min; Glucose 108 mg/dL (74-106); Total Protein 7.6 g/dL (6.4-8.2)
[2018-04-12] MEDS ORDERED: IPRATROPIUM BROM 0.5 MG/2.5ML INH SOL HHN ONE (14:30)
[2018-04-12] MEDS ORDERED: methylPREDNISolone SOD SUCC 125 MG/2 ML VL IV ONE (14:30)
[2018-04-12] MEDS ORDERED: ALBUTEROL SULF 2.5 MG/0.5ML(0.5%) NEB SOLN HHN ONE (14:30)
[2018-04-12] MEDS ORDERED: ONDANSETRON HCL 4 MG/2 ML VIAL IV PRN (16:15)
[2018-04-12] MEDS ORDERED: cefTRIAXone 1GM/50ML D5W 50 ML IV ONE (16:15)
[2018-04-12] MEDS ORDERED: HYDROcodone-ACET 5/325MG TAB PO PRN (16:15)
[2018-04-12] MEDS ORDERED: AZITHROMYCIN 500MG/ 250ML 250 ML IV ONE (17:00)
[2018-04-12 17:07] LABS: Partial Thromboplastin Time 46.1 sec (23.78-33.04); Prothrombin Time 40.1 sec (9.27-12.13)
[2018-04-12 17:17] LABS: INR 4.06 (0.9-1.15)
[2018-04-12 18:00] VITALS: BP 134/66
[2018-04-12] MEDS: ALBUTEROL SULF 2.5 MG/0.5ML(0.5%) NEB SOLN NEB SCH (19:14)
[2018-04-12] MEDS: IPRATROPIUM BROM 0.5 MG/2.5ML INH SOL NEB SCH (19:15)
[2018-04-12 21:00] VITALS: BP 134/66
[2018-04-12 22:00] VITALS: BP 122/54
[2018-04-12] MEDS: methylPREDNISolone SOD SUCC 40 MG/ML VL IV SCH (22:27)
[2018-04-12] MEDS: hydrALAZINE HCL 25 MG TAB PO SCH (22:27)
[2018-04-13] MEDS: hydrALAZINE HCL 25 MG TAB PO SCH ×3 (05:35→22:35)
[2018-04-13] MEDS: methylPREDNISolone SOD SUCC 40 MG/ML VL IV SCH (05:35)
[2018-04-13 06:03] VITALS: BP 141/71
[2018-04-13 06:15] LABS: Basophils # (auto) 0 uL; Basophils % (auto) 0.1 % (0.0-2.0); Eosinophils # (auto) 0 uL; Hematocrit 33.5 % (36.0-46.0); Hemoglobin 11.2 g/dL (12.2-16.2); Lymphocytes # (auto) 0.4 uL; Lymphocytes % (auto) 10.3 % (10.0-50.0); Mean Corpuscular Hemoglobin 29.5 pg (28.0-32.0); Mean Corpuscular Hgb Conc. 33.3 g/dL (32.0-36.0); Mean Corpuscular Volume 88.6 fL (80.0-100.0); Monocytes # (auto) 0 uL; Monocytes % (auto) 0.8 % (0.0-12.0); Neutrophils # (auto) 3.4 uL; Neutrophils % (auto) 88.8 % (37.0-80.0); Platelet Count (auto) 256 10^3/uL (140-450); Red Blood Cells 3.78 10^6/uL (4.0-5.20); Red Cell Distribution Width 15.8 % (11.8-14.3); White Blood Cell 3.9 10^3/uL (4.4-10.8)
[2018-04-13 06:28] LABS: Calcium 8.7 mg/dL (8.5-10.1); Potassium 3.8 mmol/L (3.5-5.1)
[2018-04-13 06:29] LABS: Partial Thromboplastin Time 43.9 sec (23.78-33.04); Prothrombin Time 42.8 sec (9.27-12.13)
[2018-04-13 06:30] LABS: BUN/Creatinine Ratio 16.8
[2018-04-13 06:39] LABS: INR 4.35 (0.9-1.15)
[2018-04-13] MEDS: IPRATROPIUM BROM 0.5 MG/2.5ML INH SOL NEB SCH ×4 (06:41→18:58)
[2018-04-13] MEDS: ALBUTEROL SULF 2.5 MG/0.5ML(0.5%) NEB SOLN NEB SCH ×4 (06:41→18:58)
[2018-04-13 08:44] VITALS: BP 141/64
[2018-04-13] MEDS ORDERED: cefTRIAXone 1GM/50ML D5W 50 ML IV SCH (09:00)
[2018-04-13] MEDS: DILTIAZEM HCL 120MG ER CAP PO SCH (09:56)
[2018-04-13] MEDS: CITALOPRAM HYDROBR 20 MG TAB PO SCH (09:57)
[2018-04-13] MEDS ORDERED: AZITHROMYCIN 500MG/ 250ML 250 ML IV SCH (10:00)
[2018-04-13] MEDS ORDERED: FUROSEMIDE 40 MG TAB PO SCH (10:00)
[2018-04-13 11:38] LABS: Urine Bacteria FEW /hpf (None Seen); Urine Blood TRACE /uL (Negative); Urine Specific Gravity 1.015 (1.001-1.035); Urine WBC 9 /hpf (0 - 5)
[2018-04-13 12:49] VITALS: BP 149/68
[2018-04-13 17:23] VITALS: BP 146/69
[2018-04-13] MEDS ORDERED: methylPREDNISolone SOD SUCC 40 MG/ML VL IV SCH (18:00)
[2018-04-13] MEDS: predniSONE 20 MG TAB PO SCH ×2 (18:12→22:34)
[2018-04-13 21:54] VITALS: BP 134/61
[2018-04-13] MEDS: DOXYCYCLINE 100 MG TAB/CAP PO SCH (22:35)
[2018-04-14] MEDS: ALBUTEROL SULF 2.5 MG/0.5ML(0.5%) NEB SOLN NEB SCH ×3 (00:52→12:23)
[2018-04-14] MEDS: IPRATROPIUM BROM 0.5 MG/2.5ML INH SOL NEB SCH ×3 (00:52→12:23)
[2018-04-14 04:55] VITALS: BP 127/65
[2018-04-14 05:33] LABS: Partial Thromboplastin Time 40.8 sec (23.78-33.04); Prothrombin Time 40.7 sec (9.27-12.13)
[2018-04-14 05:36] LABS: INR 4.12 (0.9-1.15)
[2018-04-14 05:42] LABS: BUN/Creatinine Ratio 24.3; Calcium 8.4 mg/dL (8.5-10.1); Potassium 3.5 mmol/L (3.5-5.1)
[2018-04-14 05:46] LABS: Bilirubin, Total 0.3 mg/dL (0.2-1.0); Total Protein 6.9 g/dL (6.4-8.2)
[2018-04-14] MEDS: hydrALAZINE HCL 25 MG TAB PO SCH ×2 (05:56→14:00)
[2018-04-14] MEDS: predniSONE 20 MG TAB PO SCH ×2 (05:56→12:00)
[2018-04-14 09:00] VITALS: BP 144/69
[2018-04-14] MEDS: DOXYCYCLINE 100 MG TAB/CAP PO SCH (10:08)
[2018-04-14] MEDS: DILTIAZEM HCL 120MG ER CAP PO SCH (10:08)
[2018-04-14] MEDS: CITALOPRAM HYDROBR 20 MG TAB PO SCH (10:08)
[2018-04-14] MEDS ORDERED: WARF2.5T39 PO (10:36)
[2018-04-14] MEDS ORDERED: ALB5IS NEB (10:36)
[2018-04-14] MEDS ORDERED: IPR002IS NEB (10:36)
[2018-04-14] MEDS ORDERED: DOX100T PO (10:36)
[2018-04-14] MEDS ORDERED: PRE5T PO (10:40)
[2018-04-14 13:00] VITALS: BP 150/78
== END 2018-04-14 16:45 | disposition home health service (06) | DRG 202 ==
LOC: ER 12:08 → OVERFLOW 12:09 → WEST WING 20:10
PROVIDERS: ADMIT Internal Medicine; ATTEND Hospitalist
DX: J20.9 Acute bronchitis, unspecified (principal); J44.0 Chronic obstructive pulmonary disease with (acute) lower respiratory infection; I50.32 Chronic diastolic (congestive) heart failure; I13.0 Hypertensive heart and chronic kidney disease with heart failure and stage 1 through stage 4 chronic kidney disease, or unspecified chronic kidney disease; N17.9 Acute kidney failure, unspecified; J44.1 Chronic obstructive pulmonary disease with (acute) exacerbation; N18.3 Chronic kidney disease, stage 3 (moderate); I69.320 Aphasia following cerebral infarction; E78.5 Hyperlipidemia, unspecified; Z79.01 Long term (current) use of anticoagulants; Z90.710 Acquired absence of both cervix and uterus; Z95.0 Presence of cardiac pacemaker
CPT/HCPCS: 36415; 36600; 71046; 80048; 80053; 81001; 82805; 83880; 84484; 85025; 85610; 85730; 93005; 94640; 94644; 94761; 96365; 96375; 97163; G0378; J0696

== ENCOUNTER 2018-09-20 12:33 | Emergency (ER) | payer OTHER ==
[~2018-09-20] VITALS: Ht 160 cm; Wt 61.2 kg
[~2018-09-20 12:33] MED LIST changes: +ALB5IS NEB; +DOX100T PO; +IPR002IS NEB; +PRE5T PO
[2018-09-20 13:17] LABS: Basophils # (auto) 0 uL; Basophils % (auto) 0.6 % (0.0-2.0); Eosinophils # (auto) 0.3 uL; Hemoglobin 12.3 g/dL (12.2-16.2); Lymphocytes # (auto) 0.8 uL; Lymphocytes % (auto) 14.7 % (10.0-50.0); Mean Corpuscular Hemoglobin 30.4 pg (28.0-32.0); Mean Corpuscular Hgb Conc. 33.2 g/dL (32.0-36.0); Mean Corpuscular Volume 91.4 fL (80.0-100.0); Monocytes # (auto) 0.5 uL; Monocytes % (auto) 9.8 % (0.0-12.0); Neutrophils # (auto) 3.8 uL; Neutrophils % (auto) 68.9 % (37.0-80.0); Nucleated Red Blood Cells % 0.2 %; Platelet Count (auto) 321 10^3/uL (140-450); Red Blood Cells 4.04 10^6/uL (4.0-5.20); Red Cell Distribution Width 16.1 % (11.8-14.3); White Blood Cell 5.4 10^3/uL (4.4-10.8)
[2018-09-20 13:32] LABS: Chloride 104 mmol/L (98-107); Potassium 3.5 mmol/L (3.5-5.1); Sodium 138 mmol/L (136-145)
[2018-09-20 13:41] LABS: Alanine Aminotransferase 10 U/L (13-56); Albumin 3.3 g/dL (3.4-5.0); Alkaline Phosphatase 67 U/L (45-117); Anion Gap 5 (5-15); Aspartate Aminotransferase 9 U/L (15-37); BUN/Creatinine Ratio 13.3; Bilirubin, Total 0.9 mg/dL (0.2-1.0); Blood Urea Nitrogen 21 mg/dL (7-18); Calcium 8.9 mg/dL (8.5-10.1); Carbon Dioxide 29 mmol/L (21-32); GFR African American 40 mL/min; GFR Non-African American 33 mL/min; Glucose 102 mg/dL (74-106); Magnesium 2.4 mg/dL (1.6-2.6)
[2018-09-20] MEDS: predniSONE 20 MG TAB PO ONE (15:35)
[2018-09-20 15:37] VITALS: BP 115/68
== END 2018-09-20 15:42 | disposition home or self-care (01) ==
LOC: ER 12:43
DX: J40 Bronchitis, not specified as acute or chronic (principal); I10 Essential (primary) hypertension; Z86.73 Personal history of transient ischemic attack (TIA), and cerebral infarction without residual deficits; Z90.49 Acquired absence of other specified parts of digestive tract; Z90.710 Acquired absence of both cervix and uterus; Z95.0 Presence of cardiac pacemaker; Z87.891 Personal history of nicotine dependence
CPT/HCPCS: 36415; 71046; 80053; 83735; 84484; 85025; 93005; 99284; J7512

== ENCOUNTER 2019-09-06 15:49 | Inpatient (IN) | payer OTHER ==
[~2019-09-06] VITALS: Ht 162.6 cm; Wt 50.6 kg
[2019-09-06 17:59] LABS: Basophils # (auto) 0 10 ^3/uL (0-0.2); Hematocrit 22.3 % (36.0-46.0); Hemoglobin 7.7 g/dL (12.2-16.2); Lymphocytes # (auto) 0.7 10 ^3/uL (0.4-5.4)
[2019-09-06 18:01] LABS: Basophils % (auto) 0.5 % (0.0-2.0); Eosinophils # (auto) 0 10 ^3/uL (0-0.8); Eosinophils % (auto) 0.6 % (0.0-7.0); Mean Corpuscular Hemoglobin 32.3 pg (28.0-32.0); Mean Corpuscular Hgb Conc. 34.6 g/dL (32.0-36.0); Mean Corpuscular Volume 93.3 fL (80.0-100.0); Monocytes # (auto) 0.2 10 ^3/uL (0-1.3); Monocytes % (auto) 2.9 % (0.0-12.0); Neutrophils # (auto) 7.3 10 ^3/uL (1.6-8.6); Nucleated Red Blood Cells % 0.1 %; Platelet Count (auto) 285 10^3/uL (140-450); Red Blood Cells 2.39 10^6/uL (4.0-5.20); Red Cell Distribution Width 16.8 % (11.8-14.3); White Blood Cell 8.3 10^3/uL (4.4-10.8)
[2019-09-06] MEDS ORDERED: SODIUM CHLORIDE 0.9% 1,000 ML IVB ONE (18:11)
[2019-09-06 18:17] LABS: Alanine Aminotransferase 7 U/L (13-56); Albumin 2.3 g/dL (3.4-5.0); Anion Gap 6 (5-15); Aspartate Aminotransferase 9 U/L (15-37); BUN/Creatinine Ratio 39.1; Blood Urea Nitrogen 79 mg/dL (7-18); Calcium 8.1 mg/dL (8.5-10.1); Carbon Dioxide 28 mmol/L (21-32); Chloride 107 mmol/L (98-107); GFR African American 30 mL/min; GFR Non-African American 25 mL/min; Glucose 116 mg/dL (74-106); Potassium 3.6 mmol/L (3.5-5.1); Sodium 141 mmol/L (136-145)
[2019-09-06 18:21] LABS: Alkaline Phosphatase 41 U/L (45-117); Bilirubin, Total 0.4 mg/dL (0.2-1.0)
[2019-09-06 18:50] LABS: INR 1.23 (0.9-1.15); Partial Thromboplastin Time 27.7 sec (23.64-32.05)
[2019-09-06] MEDS ORDERED: ALBUMIN 5% 250 ML IV ONE (21:15)
[2019-09-06] MEDS ORDERED: ACETAMINOPHEN 325 MG TAB PO PRN (21:15)
[2019-09-06] MEDS ORDERED: TEMAZEPAM 15 MG CAP PO PRN (21:15)
[2019-09-06] MEDS ORDERED: ONDANSETRON HCL 4 MG/2 ML VIAL IV PRN (21:15)
[2019-09-06] MEDS ORDERED: ALBUTEROL SULF 2.5 MG/0.5ML(0.5%) NEB SOLN NEB PRN (21:15)
[2019-09-06 21:42] LABS: Urine Bacteria FEW /hpf (None Seen); Urine Blood 1+ /uL (Negative); Urine Specific Gravity 1.011 (1.001-1.035); Urine WBC 3 /hpf (0 - 5)
[2019-09-06 22:29] LABS: INR 1.18 (0.9-1.15); Partial Thromboplastin Time 27.1 sec (23.64-32.05)
[2019-09-06 22:31] VITALS: BP 100/34
[2019-09-06] MEDS ORDERED: cefTRIAXone 1GM/50ML D5W 50 ML IV ONE (23:15)
--- NOTE | 2019-09-06 23:28 | NUR ---
PATIENT NONVERBAL UNABLE TO CONFIRM LIST OF MEDICATIONS. WILL INFORM PRICING MANAGER RN.
[2019-09-07] VITALS (8 sets, daily range): BP systolic 97–125; BP diastolic 49–68
--- NOTE | 2019-09-07 05:03 | NUR ---
NEW ADMISSION ABOUT 2300 OF 09/05?2019 ALERT AND ORIENTED BUT NONE VERBAL FROM PREVIOUS STROKE. INITIALLY ABLE TO AMBULATE TO THE BATHROOM BUT NOW A BEDSIDE COMMODE HAS BEEN PLACE BY THE RIGHT SIDE OF HER BED. SHE IS NOT IN ANY DISTRESS.
[2019-09-07 06:12] LABS: BUN/Creatinine Ratio 48.4; Potassium 3.3 mmol/L (3.5-5.1)
[2019-09-07 06:20] LABS: Basophils # (auto) 0 10 ^3/uL (0-0.2); Basophils % (auto) 0.3 % (0.0-2.0); Eosinophils # (auto) 0.1 10 ^3/uL (0-0.8); Eosinophils % (auto) 0.9 % (0.0-7.0); Hematocrit 17.2 % (36.0-46.0); Lymphocytes # (auto) 0.9 10 ^3/uL (0.4-5.4); Lymphocytes % (auto) 12.6 % (10.0-50.0); Mean Corpuscular Hemoglobin 32.3 pg (28.0-32.0); Mean Corpuscular Hgb Conc. 34.1 g/dL (32.0-36.0); Mean Corpuscular Volume 94.8 fL (80.0-100.0); Monocytes # (auto) 0.5 10 ^3/uL (0-1.3); Monocytes % (auto) 6.9 % (0.0-12.0); Neutrophils % (auto) 79.3 % (37.0-80.0); Nucleated Red Blood Cells % 0.1 %; Platelet Count (auto) 217 10^3/uL (140-450); Red Blood Cells 1.82 10^6/uL (4.0-5.20); Red Cell Distribution Width 16.6 % (11.8-14.3); White Blood Cell 7.5 10^3/uL (4.4-10.8)
--- NOTE | 2019-09-07 06:32 | NUR ---
CRITICAL LAB CALLED AT 624. HEMOGLOBIN 6 GM/DL. AT 06 HOSPITALIST PAGED. AWAITING RESPONSE.
--- NOTE | 2019-09-07 06:47 | NUR ---
HOSPITALIST CALLED AND STATED HE HAS PUT ORDERS.
--- NOTE | 2019-09-07 07:30 | NUR ---
Opening Shift Note Assumed care of patient, awake and alert. No S/S of distress/SOB or pain. Instructed on POC and to call for assist PRN, will continue to monitor for changes Q1hr and PRN. Patient is aphasic but is alert and oriented and able to make needs known.
--- NOTE | 2019-09-07 07:55 | NUR ---
Spoke with patient's daughter, Lakeisha Carter, re order for blood transfusion. Telephone consent received, witnessed by two RNs.
[2019-09-07] MEDS ORDERED: APIXABAN 2.5 MG TAB PO SCH (10:00)
[2019-09-07] MEDS ORDERED: PANTOPRAZOLE 40 MG TAB PO SCH (10:00)
--- NOTE | 2019-09-07 10:15 | NUR ---
Dr. Collins in to see patient for GI consult. He was informed that the patient has been having tarry stools.
[2019-09-07] MEDS: PANTOPRAZOLE 40 MG TAB PO SCH ×2 (11:24→21:33)
--- NOTE | 2019-09-07 13:30 | NUR ---
Patient informed of order for barros catheter. Patient shook her head "no". Verified with patient that she does not want the catheter. Patient continues to shake her head "no". Informed patient that we need to keep accurate intake and output and she needs to urinate in the commode so we measure her output. Patient states she agrees by nodding her head. Will continue to monitor.
--- NOTE | 2019-09-07 14:15 | NUR ---
Saline lock left forearm flushed, good blood return.
--- NOTE | 2019-09-07 14:20 | NUR ---
One un it PRBC started. Patient education given, patient agrees to transfusion. Will continue to monitor.
--- NOTE | 2019-09-07 17:00 | NUR ---
Transfusion completed. Patient denies any transfusion reaction. Will continue to monitor.
--- NOTE | 2019-09-07 17:15 | NUR ---
Spoke with patient's daughter, Cee Lackeyvarun. Received verbal consent for procedure. Work phone: [phone] Cell phone: [phone] Home phone: [phone]
[2019-09-07 18:07] LABS: Creatinine, Urine 55 mg/dL (30.0-125.0); Sodium Urine 18 mmol/L (40-220)
[2019-09-07] MEDS: SOD CHL 0.45% WITH 20MEQ KCL 1,000 ML IV SCH (18:18)
--- NOTE | 2019-09-07 18:55 | NUR ---
Post transfusion VS: B/P 106/49, HR 74, O2 sat 94%. Patient is resting quietly.
[2019-09-07] MEDS ORDERED: POTASSIUM CHL 20MEQ/100ML 100 ML IV ONE (20:30)
[2019-09-07 21:04] LABS: Basophils # (auto) 0 10 ^3/uL (0-0.2); Eosinophils # (auto) 0 10 ^3/uL (0-0.8); Lymphocytes # (auto) 0.7 10 ^3/uL (0.4-5.4); Monocytes # (auto) 0.6 10 ^3/uL (0-1.3)
[2019-09-07 21:06] LABS: Basophils % (auto) 0.4 % (0.0-2.0); Hematocrit 20.3 % (36.0-46.0); Lymphocytes % (auto) 9.7 % (10.0-50.0); Mean Corpuscular Hemoglobin 32.1 pg (28.0-32.0); Mean Corpuscular Hgb Conc. 33.9 g/dL (32.0-36.0); Mean Corpuscular Volume 94.6 fL (80.0-100.0); Monocytes % (auto) 8.4 % (0.0-12.0); Neutrophils # (auto) 6.1 10 ^3/uL (1.6-8.6); Neutrophils % (auto) 81.5 % (37.0-80.0); Platelet Count (auto) 205 10^3/uL (140-450); Red Blood Cells 2.14 10^6/uL (4.0-5.20); Red Cell Distribution Width 16.1 % (11.8-14.3); White Blood Cell 7.5 10^3/uL (4.4-10.8)
[2019-09-07 21:13] LABS: Hemoglobin 6.9 g/dL (12.2-16.2)
--- NOTE | 2019-09-07 21:22 | NUR ---
2119. CRITICAL LAB RESULT. HEMOGLOBIN 6.9. HOSPITALIST PAGED.
--- NOTE | 2019-09-07 21:27 | NUR ---
2125. HOSPITALIST CALLED BACK. NOTED HB WENT UP FROM 6.0 TO 6.9 NOW AFTER A UNIT OF BLOOD IN THE MORNING. NO ORDERS GIVEN. TO AWAIT CBC RESULT IN THE MORNING(09/08/19)
[2019-09-07] MEDS: cefTRIAXone 1GM/50ML D5W 50 ML IV SCH (21:33)
--- NOTE | 2019-09-07 22:33 | NUR ---
ONE UNIT OF BLOOD ORDERED TO BE TRANSFUSED NOW. BY DR JOHN Zaidi NEW IV SL INSERTED ON R ARM GUAGE 20 FOR BLOOD TRNSFUSION. AWAITING BLOOD.
[2019-09-08] VITALS (10 sets, daily range): BP systolic 128–151; BP diastolic 53–77
--- NOTE | 2019-09-08 | NUR ---
ASSUMED CARE OF PATIENT: Report received in detail by Rebecca OZUNA. Patient is aphasic, but alert and oriented to self, place, and situation. Bed is low, locked, two side rails raised, bed alarm activated, and call hennessy is within reach. Instructed patient on POC and to call for assistance PRN. Will continue to monitor PT Q 1hr and PRN. Addendum: 09/09/19 at 0122 by KARMA JOHNSON RN RN Wrong date documented. Assumed care of patient 0000 09/09/2019
--- NOTE | 2019-09-08 01:54 | NUR ---
0125. COMMENCED BLOOD TRANSFUSION.
[2019-09-08] MEDS: SOD CHL 0.45% WITH 20MEQ KCL 1,000 ML IV SCH ×2 (03:39→11:09)
--- NOTE | 2019-09-08 07:30 | NUR ---
Opening Shift Note RECEIVED REPORT FROM NOC RN. Assumed care of patient, awake and alert. No S/S of distress/SOB or pain. BED IN LOWEST, LOCKED POSITION WITH SIDERAILS UP x2 AND CALL LIGHT WITHIN REACH. Instructed on POC and to call for assist PRN, will continue to monitor for changes Q1hr and PRN.
[2019-09-08] MEDS ORDERED: LIDOCAINE VISCOUS 2% 15ML UD ONE (08:32)
[2019-09-08] MEDS ORDERED: SODIUM CHLORIDE LOCK 10 ML ONE (08:32)
[2019-09-08] MEDS ORDERED: MIDAZOLAM HCL 5 MG/ML-1ML VIAL ONE (08:33)
[2019-09-08] MEDS ORDERED: diphenhdrAMINE HCL 50 MG/1 ML VL ONE (08:33)
[2019-09-08] MEDS ORDERED: fentaNYL CITRATE 100 MCG/2 ML VL ONE (08:33)
[2019-09-08 09:05] LABS: Basophils # (auto) 0 10 ^3/uL (0-0.2); Basophils % (auto) 0.3 % (0.0-2.0); Eosinophils # (auto) 0.1 10 ^3/uL (0-0.8); Hematocrit 24.8 % (36.0-46.0); Hemoglobin 8.6 g/dL (12.2-16.2); Lymphocytes # (auto) 0.8 10 ^3/uL (0.4-5.4); Lymphocytes % (auto) 12.6 % (10.0-50.0); Mean Corpuscular Hemoglobin 32.4 pg (28.0-32.0); Mean Corpuscular Hgb Conc. 34.7 g/dL (32.0-36.0); Mean Corpuscular Volume 93.3 fL (80.0-100.0); Monocytes # (auto) 0.5 10 ^3/uL (0-1.3); Monocytes % (auto) 8.6 % (0.0-12.0); Neutrophils # (auto) 4.8 10 ^3/uL (1.6-8.6); Neutrophils % (auto) 77.5 % (37.0-80.0); Nucleated Red Blood Cells % 0.1 %; Platelet Count (auto) 203 10^3/uL (140-450); Red Blood Cells 2.66 10^6/uL (4.0-5.20); Red Cell Distribution Width 15.1 % (11.8-14.3); White Blood Cell 6.2 10^3/uL (4.4-10.8)
[2019-09-08 09:24] LABS: BUN/Creatinine Ratio 31.9; Potassium 3.3 mmol/L (3.5-5.1)
--- NOTE | 2019-09-08 09:40 | NUR ---
PATIENT TAKEN TO PREOP FOR PROCEDURE.
[2019-09-08] MEDS: PANTOPRAZOLE 40 MG TAB PO SCH ×2 (11:08→22:23)
[2019-09-08] MEDS: cefTRIAXone 1GM/50ML D5W 50 ML IV SCH (22:23)
--- NOTE | 2019-09-08 23:50 | NUR ---
IV removal IV DC'd to right forearm with clean sterile technique, catheter fully intact. Pressure dressing applied to site. Patient tolerated well.
--- NOTE | 2019-09-09 | NUR ---
Closing Shift Note Endorsed patient care to Aga OZUNA.
--- NOTE | 2019-09-09 02:42 | NUR ---
Patient resting comfortably, no S/S of SOB/Distress or pain. Bed alarm active, will continue to monitor.
[2019-09-09] MEDS: SOD CHL 0.45% WITH 20MEQ KCL 1,000 ML IV SCH ×2 (04:19→17:14)
[2019-09-09 05:20] VITALS: BP 128/66
[2019-09-09 06:12] LABS: Basophils # (auto) 0 10 ^3/uL (0-0.2); Eosinophils # (auto) 0.1 10 ^3/uL (0-0.8); Eosinophils % (auto) 2.5 % (0.0-7.0); Hemoglobin 8.4 g/dL (12.2-16.2); Monocytes # (auto) 0.5 10 ^3/uL (0-1.3); Neutrophils # (auto) 4.5 10 ^3/uL (1.6-8.6); Nucleated Red Blood Cells % 0.1 %; Red Blood Cells 2.59 10^6/uL (4.0-5.20); White Blood Cell 5.9 10^3/uL (4.4-10.8)
[2019-09-09 06:21] LABS: Basophils % (auto) 0.2 % (0.0-2.0); Hematocrit 24.5 % (36.0-46.0); Lymphocytes # (auto) 0.7 10 ^3/uL (0.4-5.4); Lymphocytes % (auto) 12.7 % (10.0-50.0); Mean Corpuscular Hemoglobin 32.5 pg (28.0-32.0); Mean Corpuscular Hgb Conc. 34.4 g/dL (32.0-36.0); Mean Corpuscular Volume 94.5 fL (80.0-100.0); Monocytes % (auto) 8.3 % (0.0-12.0); Neutrophils % (auto) 76.3 % (37.0-80.0); Platelet Count (auto) 200 10^3/uL (140-450); Red Cell Distribution Width 15.2 % (11.8-14.3)
[2019-09-09 06:29] LABS: BUN/Creatinine Ratio 22.9; Calcium 7.7 mg/dL (8.5-10.1); Magnesium 2.2 mg/dL (1.6-2.6); Potassium 3.3 mmol/L (3.5-5.1)
[2019-09-09] MEDS ORDERED: POTASSIUM CHL 20 Meq TABLET PO ONE ×3 (07:15→18:30)
[2019-09-09 09:00] VITALS: BP 126/64
--- NOTE | 2019-09-09 09:44 | NUR ---
SALES REPRESENTATIVE SALES MANAGER REPORTS PT HR 130. REASSESSED HR, HR GOES FROM 107 TO 120 BPM, CALLED PBX AND LEFT MESSAGE FOR DR COOPER NOTIFYING AWAITING CALL BACK. Addendum: 09/09/19 at 0948 by KATIA RUEDA RN PT REPORTS NO DISTRESS AT THIS TIME AND IS RESTING COMFORTABLY IN BED.
[2019-09-09] MEDS: PANTOPRAZOLE 40 MG TAB PO SCH ×2 (10:05→22:05)
--- NOTE | 2019-09-09 11:41 | NUR ---
DID ECG, ECG READS AFIB WITH RVR, HR 150 BPM. PT REPORTS SHE FEELS OKAY BY NODDING HEAD, NO DISTRESS NOTED. VITALS: BP 120/80, 02 95%, T 97.1, RR 18. WENT TO ER TO GET ECG READ, DR PENA IS ASSISTING WITH A CODE AND IS UNABLE TO READ. CALLED DR Marcelo ZAVALA, LEFT MESSAGE REPORTING HR 150 BPM WITH AFIB AND RVR. REQESTED TELE AND MEDICATION TO LOWER HR, AWAITING CALL BACK. CALLED CHARGE AND NOTIFIED PASQUALE, WILL CONTINUE TO MONITOR.
--- NOTE | 2019-09-09 11:53 | NUR ---
SAW DR COOPER AT [facility], REPORTED AFIB WITH RVR AND SHOWED MD ECG STRIPS. NEW ORDERS TO TRANSFER TO [facility], START AMIODARONE AND HEPARIN DRIP, DC LOVENOX, 2D ECHO AND CALL DR MIX TO REPORT HEPARIN DRIP, CARDIO CONSULT WITH DR SHOOK.
[2019-09-09] MEDS ORDERED: HEPARIN DRIP/D5W 100UNITS/ML 250 ML IV SCH ×2 (11:58)
[2019-09-09] MEDS ORDERED: ENOXAPARIN SOD 40 MG/0.4 ML SYRINGE SC SCH (12:00)
[2019-09-09] MEDS ORDERED: AMIODARONE HCL 150 MG in D5W 5% 100 ML IV ONE (12:00)
[2019-09-09] MEDS ORDERED: AMIODARONE HCL 900 MG in DEXTROSE 500 ML IV SCH ×2 (12:08→18:08)
[2019-09-09] MEDS: POTASSIUM CHL 20MEQ/100ML 100 ML IV SCH ×2 (12:15→14:15)
[2019-09-09 12:56] LABS: Basophils # (auto) 0 10 ^3/uL (0-0.2); Basophils % (auto) 0.4 % (0.0-2.0); Eosinophils # (auto) 0.2 10 ^3/uL (0-0.8); Eosinophils % (auto) 2.3 % (0.0-7.0); Hematocrit 27.7 % (36.0-46.0); Hemoglobin 9.7 g/dL (12.2-16.2); Lymphocytes # (auto) 0.9 10 ^3/uL (0.4-5.4); Lymphocytes % (auto) 13.3 % (10.0-50.0); Mean Corpuscular Hemoglobin 33.3 pg (28.0-32.0); Mean Corpuscular Hgb Conc. 34.9 g/dL (32.0-36.0); Mean Corpuscular Volume 95.5 fL (80.0-100.0); Monocytes # (auto) 0.5 10 ^3/uL (0-1.3); Neutrophils # (auto) 5.4 10 ^3/uL (1.6-8.6); Nucleated Red Blood Cells % 0.1 %; Platelet Count (auto) 234 10^3/uL (140-450); Red Cell Distribution Width 15.6 % (11.8-14.3)
[2019-09-09 13:00] VITALS: BP 126/71
--- NOTE | 2019-09-09 13:09 | NUR ---
DR TRACEY REVIEWED AND SIGNED ECG. DR Amber KAPLAN CALLED AND REVIEWED PT CHART. NOTIFIED PT HAD GI BLEED AND IS S/P EGG. DR KAPLAN REPORTS TO START HEPARIN DRIP AND SHE WILL PUT IN ORDERS FOR CARAFATE. PT PLACED ON TELE. Addendum: 09/09/19 at 1311 by KATIA RUEDA RN EGD, NOT EGG
[2019-09-09 13:11] LABS: INR 1.07 (0.9-1.15); Partial Thromboplastin Time 25.6 sec (23.64-32.05)
--- NOTE | 2019-09-09 13:23 | NUR ---
IV PLACED RIGHT WRIST 20G BY PASQUALE BIRD. SECOND IV ATTEMPTED ON LFA USING STERILE TECHNIQUE, BLOOD IN FLASH BACK CHAMBER, UNABLE TO ADVANCE CATHETER. WILL LET PT REST AND ATTEMPT ANOTHER IV.
--- NOTE | 2019-09-09 13:33 | NUR ---
CALLED PHARMACY TO CLARIFY HEPARIN DOSE, NO BOLUS PER MD ORDER. PHARMACY REPORTS TO RUN HEPARIN AT 9 MLS/HR.
--- NOTE | 2019-09-09 14:02 | NUR ---
Attempted PT eval. Per RN hold mobility today. Will attempt again tomorrow.
[2019-09-09] MEDS ORDERED: DIGOXIN (250MCG/ML) 2 ML AMPULE IV ONE (14:15)
--- NOTE | 2019-09-09 14:22 | NUR ---
Started amiodarone and heparin drips, upholstery technician at bedside. Dr Marroquin saw patient, new orders for digoxin.
--- NOTE | 2019-09-09 14:25 | NUR ---
RUNNING JIMENEZ WHITTAKER, BP 129/71, HR 127.
--- NOTE | 2019-09-09 14:29 | NUR ---
AMIODARONE BOLUS FINISHED. VITALS BP 119/67, 02 93, HR 114, RR 24, T 97.7.
--- NOTE | 2019-09-09 15:03 | NUR ---
PT HR 85, SPOKE WITH CHARGE, CHARGE REPORTS TO HOLD DIGOXIN.
--- NOTE | 2019-09-09 15:15 | NUR ---
PELON AND ZAY OZUNA ATTEMPTED NEW IV USING STERILE TECHNIQUE, UNABLE TO OBTAIN ACCESS, WILL GET MIDLINE.
--- NOTE | 2019-09-09 15:55 | NUR ---
GAVE HERMINIO, PT DAUGHTER, UPDATE ON CARE. NOTIFIED DR GODFREY PT DAUGHTER WOULD LIKE TO SPEAK WITH [place]. AWARE AND REPORTS HE WILL CALL HER TOMORROW, HERMINIO NOTIFIED.
[2019-09-09 17:00] VITALS: BP 129/72
--- NOTE | 2019-09-09 17:31 | NUR ---
Called Karel Picc nurse, he reports he will be here soon to do midline.
--- NOTE | 2019-09-09 18:12 | NUR ---
MIDLINE ATTEMPT. UNABLE TO INSERT MIDLINE CATHETER IN THE LEFT BASILIC VEIN. PT CARE NURSE NOTIFIED.
--- NOTE | 2019-09-09 18:19 | NUR ---
SLICK REPORTS HE IS UNABLE TO OBTAIN MIDLINE. CALLED DR GODFREY AND REPORTED UNABLE TO GET ANOTHER IV ACCESS TO GET POTASSIUM. REPORTS TO GIVE POT 40 PO INSTEAD OF IV AND RECHECK IN AM.
[2019-09-09] MEDS: SUCRALFATE 1 GM/10 ML ORAL SUSP GT SCH ×2 (18:23→22:05)
--- NOTE | 2019-09-09 19:30 | NUR ---
PT REFUSING BLOOD DRAW FROM BENNY DIRECTOR DATA PROCESSING.
--- NOTE | 2019-09-09 19:47 | NUR ---
INFORMED MD COVERING FOR DR COOPER AT [phone] THAT PT IS REFUSING HER Q6 BLOOD DRAW. MD COVERING FOR DR COOPER STATES MORE RESEARCH SHOULD BE DONE BECAUSE HE BELIEVES THIS PATIENT SHOULD NOT BE ON HEPARIN DUE TO HER HX OF GI BLEED AND BLACK TARRY STOOLS. WILL INFORM LIMNOLOGIST.
--- NOTE | 2019-09-09 19:55 | NUR ---
DR COOPER CALLED BACK STATING THAT IF PATIENT IS REFUSING HER BLOOD DRAWS TO STOP THE HEPARIN GTT. IF PATIENT DECIDES TO RESUME BLOOD DRAWS THEN RESUME HEPARING GTT.
--- NOTE | 2019-09-09 21:00 | NUR ---
PT AWAKE ALERT AND WATCHING TELEVISION. NO DISTRESS NOTED.
[2019-09-09 21:18] VITALS: BP 145/72
[2019-09-09] MEDS: cefTRIAXone 1GM/50ML D5W 50 ML IV SCH (21:41)
--- NOTE | 2019-09-10 | NUR ---
PT RESTING COMFORTABLY NO DISTRESS OBSERVED.
[2019-09-10 04:43] VITALS: BP 121/63
[2019-09-10] MEDS: SUCRALFATE 1 GM/10 ML ORAL SUSP GT SCH ×4 (05:53→23:52)
--- NOTE | 2019-09-10 06:45 | NUR ---
PT REFUSED AM LAB DRAW. WILL PASS ONTO DAYSHIFT RN DR COOPER WAS NOTIFIED OF PT'S EVENING REFUSAL OF LAB DRAWS ON 09/09/2019.
--- NOTE | 2019-09-10 06:54 | NUR ---
TRANSFER FOR PATIENT BEING ARRANGED;WILL BE MOVED INTO 219A.
--- NOTE | 2019-09-10 07:37 | NUR ---
RECEIVED IN REPORT PT REFUSING BLOOD DRAW AND IV FLUIDS. HEPARIN DC'D.
[2019-09-10 09:00] VITALS: BP 162/81
--- NOTE | 2019-09-10 09:18 | NUR ---
PT AGREED TO FLUIDS, BUT IV LFA IS LEAKING. IV DC'D, PRESSURE DRESSING APPLIED. COMPRESS TRUCKER REPORTS PT BP 162/81, HR 102, REASSESSED, BP 148/72, HR 80.
[2019-09-10] MEDS: SOD CHL 0.45% WITH 20MEQ KCL 1,000 ML IV SCH ×2 (10:05→21:35)
[2019-09-10] MEDS: PANTOPRAZOLE 40 MG TAB PO SCH ×2 (10:08→21:35)
--- NOTE | 2019-09-10 10:18 | NUR ---
SPOKE TO SLICK PICC NURSE, HE REPORTS HE WILL NOT BE ABLE TO DO MIDLINE TODAY, HE REPORTS HE'S VERY BUSY. WILL CALL [facility].
--- NOTE | 2019-09-10 10:30 | NUR ---
LAB REPORTS PT HAS REFUSED BLOOD DRAW AGAIN.
--- NOTE | 2019-09-10 11:15 | NUR ---
IVAN RN REPORTS SHE WAS ABLE TO PLACE A NEW LH 24 GAUGE, AND PT TOLERATED PROCEDURE WELL.
--- NOTE | 2019-09-10 12:31 | NUR ---
PT IV RFA SHOWS EDEMA AND ERYTHEMA. PT REPORTS IT HURTS BY CRINGING AND POINTING TO SITE. IV DC'D AND PRESSURE DRESSING APPLIED. SPOKE WITH CHARGE, NEW IV ACCESS IS NEEDED. PT HAS ONE IV AND IT IS BEING USED FOR AMIO DRIP. CHARGE REPORTS TO CALL [facility] AND REQUEST NURSE TO PLACE IV. [facility] REPORTS THEY ARE BUSY RIGHT NOW BUT THEY WILL TRY. DR GODFREY CAME AND SAW PATIENT AND UPDATED HER ON PLAN OF CARE. REPORTS HE WILL CALL HERMINIO, DAUGHTER. PT DAUGHTER ELENA CALLED EARLIER, SHE WAS UPDATED ON POC WELL. PHYSICAL THERAPY HERE TO SEE PATIENT. Addendum: 09/10/19 at 1243 by KATIA RUEDA RN NEW ORDER FOR LOVENOX 1 MG/KG Q 12 HRS SUB Q.
[2019-09-10 13:00] VITALS: BP 145/80
--- NOTE | 2019-09-10 14:28 | NUR ---
SPOKE WITH BLAKE BIRD RN, BLAKE REPORTS TO CALL DR COOPER AND SEE IF HE WANTS TO CONTINUE AMIODARONE DRIP. CALLED DR COOPER, ASKED IF HE WANTS TO CONTINUE DRIP. REPORTS TO KEEP AMIO DRIP FOR NOW, AND CALL DR SHOOK TO SEE WHAT HE RECOMMENDS. CALLED AND LEFT MESSAGE WITH DR SHOOK'S ANSWERING SERVICE, AWAITING CALL BACK.
--- NOTE | 2019-09-10 15:11 | NUR ---
DR SHOOK CALLED BACK, HE REPORTS TO STOP AMIODARONE DRIP, AND NEW ORDERS FOR METOPROLOL TARTRATE 25 MG BID, FIRST DOSE NOW.
[2019-09-10] MEDS ORDERED: METOPROLOL TARTRATE 25 MG TAB PO ONE (15:15)
[2019-09-10 17:00] VITALS: BP 153/73
[2019-09-10] MEDS ORDERED: hydrALAZINE HCL 20 MG/ML VL IV PRN (17:15)
--- NOTE | 2019-09-10 17:16 | NUR ---
SOAKING PITS SUPERVISOR REPORTS PT BP 153/73, HR 96. REASSESSED, BP 161/76, HR 84. CALLED AND NOTIFIED DR KENNETH SHOOK DC'D AMIO DRIP AND PLACED PT ON METOPROLOL. MD WALLER. REPORTED PT BP, NEW ORDERS FOR HYDRALAZINE.
--- NOTE | 2019-09-10 18:01 | NUR ---
ASSESSED BP, BP NOW 130/61, HR 81. PT SITTING UP TO EAT DINNER, WILL CONTINUE TO MONITOR.
--- NOTE | 2019-09-10 20:00 | NUR ---
Opening Shift Note Assumed care of patient, awake and alert, follows direction, aphasic, nods to yes and no questions. On room air with even and unlabored respirations, no S/S of distress/SOB or pain. Noted mild weakness to right arm. patient turns independently in bed. PIV intact and patent. bed in lowest locked position with side rails up x 2 and call light within reach, bed alarm on. Instructed on POC and to call for assist PRN, will continue to monitor for changes Q1hr and PRN.
[2019-09-10 21:00] VITALS: BP 127/62
[2019-09-10] MEDS: cefTRIAXone 1GM/50ML D5W 50 ML IV SCH (21:34)
[2019-09-10] MEDS: ENOXAPARIN SOD 60 MG/0.6 ML SYRINGE SC SCH (21:35)
[2019-09-10] MEDS: METOPROLOL TARTRATE 25 MG TAB PO SCH (21:36)
[2019-09-11 04:30] VITALS: BP 131/54
[2019-09-11 05:57] LABS: Basophils # (auto) 0 10 ^3/uL (0-0.2); Basophils % (auto) 0.4 % (0.0-2.0); Eosinophils # (auto) 0.2 10 ^3/uL (0-0.8); Eosinophils % (auto) 3.1 % (0.0-7.0); Hematocrit 25.1 % (36.0-46.0); Hemoglobin 8.7 g/dL (12.2-16.2); Lymphocytes # (auto) 0.7 10 ^3/uL (0.4-5.4); Lymphocytes % (auto) 10.3 % (10.0-50.0); Mean Corpuscular Hgb Conc. 34.8 g/dL (32.0-36.0); Mean Corpuscular Volume 94.8 fL (80.0-100.0); Monocytes # (auto) 0.6 10 ^3/uL (0-1.3); Monocytes % (auto) 8.6 % (0.0-12.0); Neutrophils # (auto) 5.1 10 ^3/uL (1.6-8.6); Neutrophils % (auto) 77.6 % (37.0-80.0); Platelet Count (auto) 240 10^3/uL (140-450); Red Blood Cells 2.65 10^6/uL (4.0-5.20); Red Cell Distribution Width 15.5 % (11.8-14.3); White Blood Cell 6.6 10^3/uL (4.4-10.8)
[2019-09-11] MEDS: SUCRALFATE 1 GM/10 ML ORAL SUSP GT SCH (06:04)
[2019-09-11 06:14] LABS: Calcium 8.1 mg/dL (8.5-10.1); Magnesium 2.1 mg/dL (1.6-2.6)
[2019-09-11 06:16] LABS: BUN/Creatinine Ratio 6.7
--- NOTE | 2019-09-11 07:05 | NUR ---
Closing Note patient resting in bed with even and unlabored respiration, no s/s of distress. Bed in lowest locked position with side rails up x 2 and call light within reach. Endorsed care to day shift RN Justyn.
[2019-09-11 08:00] VITALS: BP 140/68
[2019-09-11 09:00] VITALS: BP 140/68
[2019-09-11] MEDS: SOD CHL 0.45% WITH 20MEQ KCL 1,000 ML IV SCH (09:39)
[2019-09-11] MEDS: METOPROLOL TARTRATE 25 MG TAB PO SCH (09:39)
[2019-09-11] MEDS: PANTOPRAZOLE 40 MG TAB PO SCH (09:39)
[2019-09-11] MEDS: ENOXAPARIN SOD 60 MG/0.6 ML SYRINGE SC SCH (09:40)
--- NOTE | 2019-09-11 11:02 | NUR ---
DR COOPER SPOKE WITH ELENA, THE DAUGHTER OF THE PATIENT, AND INFORMED HER THAT THE PATIENT WAS BEING DISCHARGED HOME. ELENA INFORMED THE DR THAT SHE WOULD NOT BE AVAILABLE TO FAMILY NURSE THE PATIENT UNTIL THE AFTERNOON.
[2019-09-11] MEDS ORDERED: SUCRALFATE 1 GM/10 ML ORAL SUSP PO SCH (11:30)
[2019-09-11 11:48] VITALS: BP 140/68
[2019-09-11 12:38] VITALS: BP 140/80
--- NOTE | 2019-09-11 15:54 | NUR ---
PATIENT DISCHARGED HOME WITH FAMILY. TELEMETRY BOX REMOVED AND RETURNED TO TELEMETRY DEPARTMENT. ALL IV ACCESS DISCONTINUED. ALL DISCHARGE INSTRUCTIONS GIVEN. ALL DISCHARGE PAPERWORK SIGNED.
== END 2019-09-11 15:56 | disposition home or self-care (01) | DRG 377 ==
LOC: EDBD 15:49 → ER 15:49 → OVERFLOW 15:50 → WEST WING 23:08 → TELE-WESTW 09-09 22:16 → TELE-CENTR 09-10 06:49 → TELE-WESTW 09-10 07:42
PROVIDERS: ADMIT Nurse Practitioner; ATTEND Internal Medicine
PROC: 30233N1 Transfusion of Nonautologous Red Blood Cells into Peripheral Vein, Percutaneous Approach (ICD-10-PCS; principal; 2019-09-07)
PROC: 0DJ08ZZ Inspection of Upper Intestinal Tract, Via Natural or Artificial Opening Endoscopic (ICD-10-PCS; 2019-09-08)
DX: K29.71 Gastritis, unspecified, with bleeding (principal); N17.0 Acute kidney failure with tubular necrosis; G93.40 Encephalopathy, unspecified; N39.0 Urinary tract infection, site not specified; E44.0 Moderate protein-calorie malnutrition; Z68.1 Body mass index [BMI] 19.9 or less, adult; K29.81 Duodenitis with bleeding; D50.0 Iron deficiency anemia secondary to blood loss (chronic); I95.9 Hypotension, unspecified; E87.6 Hypokalemia; E88.09 Other disorders of plasma-protein metabolism, not elsewhere classified; F32.9 Major depressive disorder, single episode, unspecified; I48.91 Unspecified atrial fibrillation; D64.9 Anemia, unspecified; F41.9 Anxiety disorder, unspecified; I10 Essential (primary) hypertension; J44.9 Chronic obstructive pulmonary disease, unspecified; N18.9 Chronic kidney disease, unspecified; E11.22 Type 2 diabetes mellitus with diabetic chronic kidney disease; D63.8 Anemia in other chronic diseases classified elsewhere; Z90.49 Acquired absence of other specified parts of digestive tract; Z86.73 Personal history of transient ischemic attack (TIA), and cerebral infarction without residual deficits; Z90.710 Acquired absence of both cervix and uterus; Z95.0 Presence of cardiac pacemaker; Z79.51 Long term (current) use of inhaled steroids; Z79.899 Other long term (current) drug therapy; Z82.3 Family history of stroke; Z82.49 Family history of ischemic heart disease and other diseases of the circulatory system; Z80.59 Family history of malignant neoplasm of other urinary tract organ; Z91.19 Patient's noncompliance with other medical treatment and regimen
CPT/HCPCS: 36415; 43235; 70450; 71045; 74176; 80048; 80053; 81001; 82270; 82570; 83735; 83880; 84300; 84443; 84484; 85025; 85610; 85730; 86850; 86900; 86901; 86920; 87086; 93005; 93306; 96365; 96367; 97163; G0378; J0696; J2250; J3480; J7060

== ENCOUNTER 2020-05-02 16:16 | Emergency (ER) | payer OTHER ==
[~2020-05-02] VITALS: Ht 160 cm; Wt 44.9 kg
[~2020-05-02 16:16] MED LIST changes: -WARF2.5T39 PO
[2020-05-02 16:58] LABS: Basophils # (auto) 0 10 ^3/uL (0-0.2); Eosinophils # (auto) 0.1 10 ^3/uL (0-0.8); Hemoglobin 9.1 g/dL (12.2-16.2); Lymphocytes # (auto) 0.8 10 ^3/uL (0.4-5.4); Monocytes # (auto) 0.4 10 ^3/uL (0-1.3); Neutrophils # (auto) 3.4 10 ^3/uL (1.6-8.6); Red Cell Distribution Width 15.4 % (11.8-14.3)
[2020-05-02 16:59] LABS: Basophils % (auto) 0.5 % (0.0-2.0); Eosinophils % (auto) 1.1 % (0.0-7.0); Hematocrit 27.6 % (36.0-46.0); Lymphocytes % (auto) 17.4 % (10.0-50.0); Mean Corpuscular Hemoglobin 33.4 pg (28.0-32.0); Mean Corpuscular Volume 101.5 fL (80.0-100.0); Monocytes % (auto) 8.7 % (0.0-12.0); Neutrophils % (auto) 72.3 % (37.0-80.0); Platelet Count (auto) 303 10^3/uL (140-450); Red Blood Cells 2.72 10^6/uL (4.0-5.20); White Blood Cell 4.8 10^3/uL (4.4-10.8)
[2020-05-02 17:18] LABS: Albumin 2.7 g/dL (3.4-5.0); BUN/Creatinine Ratio 19.3; Calcium 8.2 mg/dL (8.5-10.1); Potassium 4.3 mmol/L (3.5-5.1)
[2020-05-02 17:25] LABS: INR 1.21 (0.9-1.15); Partial Thromboplastin Time 25.9 sec (23.0-31.2)
[2020-05-02 17:26] LABS: Bilirubin, Total 0.3 mg/dL (0.2-1.0); Total Protein 5.7 g/dL (6.4-8.2)
[2020-05-02 20:00] VITALS: BP 125/50
== END 2020-05-02 21:19 | disposition home or self-care (01) ==
LOC: ER 16:16
DX: D64.9 Anemia, unspecified (principal); J44.9 Chronic obstructive pulmonary disease, unspecified; I10 Essential (primary) hypertension; Z90.710 Acquired absence of both cervix and uterus; Z86.73 Personal history of transient ischemic attack (TIA), and cerebral infarction without residual deficits
CPT/HCPCS: 36415; 80053; 85025; 85610; 85730; 86850; 86900; 86901

== ENCOUNTER 2020-06-16 14:15 | Inpatient (IN) | payer OTHER ==
[~2020-06-16] VITALS: Ht 152.4 cm; Wt 58.9 kg
[2020-06-16 15:56] LABS: Basophils # (auto) 0 10 ^3/uL (0-0.2); Basophils % (auto) 0.2 % (0.0-2.0); Eosinophils # (auto) 0 10 ^3/uL (0-0.8); Eosinophils % (auto) 0.3 % (0.0-7.0); Hematocrit 30.2 % (36.0-46.0); Lymphocytes # (auto) 0.3 10 ^3/uL (0.4-5.4); Lymphocytes % (auto) 7.3 % (10.0-50.0); Mean Corpuscular Hemoglobin 32.5 pg (28.0-32.0); Mean Corpuscular Hgb Conc. 33.2 g/dL (32.0-36.0); Mean Corpuscular Volume 97.9 fL (80.0-100.0); Monocytes # (auto) 0.4 10 ^3/uL (0-1.3); Monocytes % (auto) 9.4 % (0.0-12.0); Neutrophils # (auto) 3.4 10 ^3/uL (1.6-8.6); Neutrophils % (auto) 82.8 % (37.0-80.0); Platelet Count (auto) 280 10^3/uL (140-450); Red Blood Cells 3.09 10^6/uL (4.0-5.20); Red Cell Distribution Width 14.2 % (11.8-14.3); White Blood Cell 4.1 10^3/uL (4.4-10.8)
[2020-06-16 16:14] LABS: Calcium 8.4 mg/dL (8.5-10.1); Potassium 3.4 mmol/L (3.5-5.1)
[2020-06-16 16:20] LABS: BUN/Creatinine Ratio 28.3; Bilirubin, Total 0.6 mg/dL (0.2-1.0); Total Protein 5.8 g/dL (6.4-8.2)
[2020-06-16 16:22] LABS: INR 1.24 (0.9-1.15)
[2020-06-16 16:45] LABS: Urine Bacteria FEW /hpf (None Seen); Urine Blood TRACE /uL (Negative); Urine Specific Gravity 1.009 (1.001-1.035); Urine WBC 1 /hpf (0 - 5)
[2020-06-16] MEDS ORDERED: cefTRIAXone 1GM/50ML D5W 50 ML IV ONE (17:45)
[2020-06-16] MEDS ORDERED: AZITHROMYCIN 500MG/ 250ML 250 ML IV ONE (17:45)
[2020-06-17] MEDS ORDERED: TEMAZEPAM 15 MG CAP PO PRN (00:30)
[2020-06-17] MEDS ORDERED: ONDANSETRON HCL 4 MG/2 ML VIAL IV PRN (00:30)
[2020-06-17] MEDS ORDERED: MORPHINE SULF INJ 2 MG/ML SYRINGE 1ML IV PRN (00:30)
[2020-06-17] MEDS ORDERED: ALBUTEROL SULF HFA 90MCG INH 200DOSE IN PRN (00:30)
[2020-06-17] MEDS ORDERED: NITROGLYCERIN 0.4 MG SL TAB SL PRN (00:30)
[2020-06-17] MEDS ORDERED: POTASSIUM CHL 20 Meq TABLET PO ONE (00:30)
[2020-06-17] MEDS ORDERED: ACETAMINOPHEN 325 MG TAB PO PRN (00:30)
[2020-06-17 01:34] LABS: CRP High Sensitivity 7.41 mg/dL (< 0.3)
[2020-06-17] MEDS: ASCORBIC ACID 1,000 MG TAB PO SCH (10:00)
[2020-06-17] MEDS ORDERED: AZITHROMYCIN 500MG/ 250ML 250 ML IV SCH (10:00)
[2020-06-17] MEDS: DexAMETHasone SOD PHOS 10MG/1ML VIAL INJ IV SCH (13:00)
[2020-06-17] MEDS: ZINC SULFATE 220mg CAP or TAB PO SCH (13:00)
[2020-06-17] MEDS: CHOLECALCIFEROL (VITD3) 2,000 UNIT CAP PO SCH (13:00)
[2020-06-17] MEDS: PANTOPRAZOLE 40 MG TAB PO SCH (13:00)
[2020-06-17] MEDS: ENOXAPARIN SOD 40 MG/0.4 ML SYRINGE SC SCH (13:00)
[2020-06-17] MEDS: POTASSIUM CHL 10 Meq TABLET PO SCH (13:00)
[2020-06-17] MEDS: FUROSEMIDE 20 MG TAB PO SCH (13:00)
[2020-06-17] MEDS: Ensure HIGH Protein Chocolate 8oz Bottle PO SCH ×2 (14:00→18:00)
[2020-06-17] MEDS ORDERED: levoFLOXacin 500MG 100 ML IV ONE (19:15)
[2020-06-17] MEDS ORDERED: LORazepam 2MG/ML-1ML VIAL IV PRN (21:15)
[2020-06-18] VITALS: BP 122/69
[2020-06-18 06:38] LABS: Basophils # (auto) 0 10 ^3/uL (0-0.2); Basophils % (auto) 0.4 % (0.0-2.0); Eosinophils # (auto) 0 10 ^3/uL (0-0.8); Eosinophils % (auto) 0.6 % (0.0-7.0); Hematocrit 30.3 % (36.0-46.0); Hemoglobin 10.2 g/dL (12.2-16.2); Lymphocytes # (auto) 0.5 10 ^3/uL (0.4-5.4); Lymphocytes % (auto) 16.6 % (10.0-50.0); Mean Corpuscular Hemoglobin 32.4 pg (28.0-32.0); Mean Corpuscular Hgb Conc. 33.5 g/dL (32.0-36.0); Mean Corpuscular Volume 96.7 fL (80.0-100.0); Monocytes # (auto) 0.3 10 ^3/uL (0-1.3); Monocytes % (auto) 8.8 % (0.0-12.0); Neutrophils # (auto) 2.2 10 ^3/uL (1.6-8.6); Neutrophils % (auto) 73.6 % (37.0-80.0); Platelet Count (auto) 285 10^3/uL (140-450); Red Blood Cells 3.13 10^6/uL (4.0-5.20); Red Cell Distribution Width 14.1 % (11.8-14.3)
[2020-06-18 08:00] VITALS: BP 135/79
[2020-06-18 08:03] LABS: Calcium 8.3 mg/dL (8.5-10.1); Magnesium 2.3 mg/dL (1.6-2.6); Potassium 3.5 mmol/L (3.5-5.1)
[2020-06-18] MEDS: Ensure HIGH Protein Chocolate 8oz Bottle PO SCH ×3 (08:15→18:00)
[2020-06-18] MEDS ORDERED: levoFLOXacin 250MG 50 ML IV SCH (10:00)
[2020-06-18] MEDS: PANTOPRAZOLE 40 MG TAB PO SCH (10:00)
[2020-06-18] MEDS: ASCORBIC ACID 1,000 MG TAB PO SCH (10:00)
[2020-06-18] MEDS: ENOXAPARIN SOD 40 MG/0.4 ML SYRINGE SC SCH (10:00)
[2020-06-18] MEDS: DexAMETHasone SOD PHOS 10MG/1ML VIAL INJ IV SCH (11:20)
[2020-06-18] MEDS: ZINC SULFATE 220mg CAP or TAB PO SCH (11:20)
[2020-06-18] MEDS: CHOLECALCIFEROL (VITD3) 2,000 UNIT CAP PO SCH (11:21)
[2020-06-18] MEDS: POTASSIUM CHL 10 Meq TABLET PO SCH (11:21)
[2020-06-18] MEDS: FUROSEMIDE 20 MG TAB PO SCH (11:23)
[2020-06-18 16:00] VITALS: BP 131/81
[2020-06-18 18:38] VITALS: BP 131/81
== END 2020-06-18 21:50 | DRG 177 ==
LOC: EDBD 14:15 → EDSEX 14:15 → ER 14:15 → TELE 14:16 → TELE-WESTW 06-17 17:42 → UNDODISIN 06-18 21:50
PROVIDERS: ADMIT Nurse Practitioner; ATTEND Internal Medicine
DX: U07.1 COVID-19 (principal); J12.89 Other viral pneumonia; J96.01 Acute respiratory failure with hypoxia; E43 Unspecified severe protein-calorie malnutrition; J15.9 Unspecified bacterial pneumonia; N39.0 Urinary tract infection, site not specified; I13.0 Hypertensive heart and chronic kidney disease with heart failure and stage 1 through stage 4 chronic kidney disease, or unspecified chronic kidney disease; J44.0 Chronic obstructive pulmonary disease with (acute) lower respiratory infection; R62.7 Adult failure to thrive; N18.30 Chronic kidney disease, stage 3 unspecified; F32.9 Major depressive disorder, single episode, unspecified; I25.10 Atherosclerotic heart disease of native coronary artery without angina pectoris; F41.9 Anxiety disorder, unspecified; R43.9 Unspecified disturbances of smell and taste; R53.81 Other malaise; I50.9 Heart failure, unspecified; Z80.49 Family history of malignant neoplasm of other genital organs; Z82.3 Family history of stroke; Z82.49 Family history of ischemic heart disease and other diseases of the circulatory system; Z86.73 Personal history of transient ischemic attack (TIA), and cerebral infarction without residual deficits; Z90.710 Acquired absence of both cervix and uterus; Z95.0 Presence of cardiac pacemaker; Z68.25 Body mass index [BMI] 25.0-25.9, adult
CPT/HCPCS: 36415; 51702; 71045; 80048; 80053; 81001; 82728; 83036; 83605; 83615; 83735; 83880; 84443; 84484; 85025; 85379; 85610; 86141; 87040; 87086; 87426; 93005; 93970; 96365; 96366; 96367; 96372; 96375; 97163; G0378; J0696; J1100; J1956